=== PATIENT | female | born 1950 | race Caucasian/White ===

== ENCOUNTER → 2016-09-16 | Outpatient (CLI) | payer OTHER ==
[2016-09-16 17:44] LABS: BASO % 0.3 %; BASO ABS # 0.02 K/uL (0-0.2); COMPLETE YES; EOS % 1.5 %; HEMATOCRIT 41.8 % (37-47); IG% 0.3 %; LYMPH ABS # 2.38 K/uL (1.2-3.4); MEAN CELL VOLUME 92.5 fL (80-100); MEAN CORPUSCULAR HEMOGLOBIN 29.6 pg (25-34); MEAN CORPUSCULAR HGB CONC 32.1 g/dl (32-36); MONO % 9.3 %; NEUT % 56.6 %; PLATELET COUNT 256 K/uL (130-400); RED BLOOD COUNT 4.52 M/uL (4.2-5.4); WHITE BLOOD COUNT 7.44 K/uL (4.8-10.8)
[2016-09-16 18:13] LABS: CHOLESTEROL/HDL RATIO 3.2; THYROID STIMULATING HORMONE 1.38 uIu/ml (0.300-4.500)
--- NOTE | 2016-09-23 13:49 | CODING QUERY MEDICAL NECESSITY ---
CQSUPPORTING DIAGNOSIS NEEDED A supporting diagnosis is required for the test/procedure performed on this patient in order for us to be reimbursed by the patient's insurance. Please provide a supporting diagnosis for the following test/procedure listed below next to the test name along with your signature. *If there is no additional diagnosis for this patient that would support the following test/procedure please document that below next to the test/procedure. Test(s)/Procedure(s) that require a supporting diagnosis: DOS 09/16/16 BLOOD COUNT Provider Signature: Date: Thank you Jackie Person [employer] Once completed, please kindly fax back to [phone] For questions please call [phone]
== END | disposition home or self-care (01) ==
LOC: C.LABPBG 15:33 → MERGE 15:33
PROVIDERS: ATTEND Neuromusculoskeletal Medicine & OMM
DX: Z00.00 Encounter for general adult medical examination without abnormal findings (principal); R00.2 Palpitations

== ENCOUNTER → 2017-01-22 | Outpatient (CLI) | payer OTHER ==
[2017-01-22 16:55] LABS: BLOOD UREA NITROGEN 25 mg/dl (7-18); BUN/CREATININE RATIO 24.6 (10-20); CALCIUM 9.9 mg/dl (8.5-10.1); CARBON DIOXIDE 33 mmol/L (21-32); CHLORIDE 99 mmol/L (98-107); GLUCOSE,FASTING 120 mg/dl (70-99); POTASSIUM 4.3 mmol/L (3.5-5.1); SODIUM 138 mmol/L (136-145)
[2017-01-22 17:06] LABS: CHOLESTEROL 124 mg/dl (0-200); HDL CHOLESTEROL 42 mg/dl; LDL CHOLESTEROL CALCULATED 61 mg/dl; TRIGLYCERIDES 105 mg/dl (0-150); VERY LOW DENSITY LIPOPROT CALC 21 mg/dl
--- NOTE | 2017-01-27 11:31 | CODING QUERY MEDICAL NECESSITY ---
SUPPORTING DIAGNOSIS NEEDED Genaro ALBARADO, A supporting diagnosis is required for the test/procedure performed on this patient in order for us to be reimbursed by the patient's insurance. Please provide a supporting diagnosis for the following test/procedure listed below next to the test name along with your signature. *If there is no additional diagnosis for this patient that would support the following test/procedure please document that below next to the test/procedure. Test(s)/Procedure(s) that require a supporting diagnosis: * [id number] GLYCATED HEMOGLOBIN DIAGNOSIS: DATE OF SERVICE: 01/22/17 Provider Signature: Date: Thank you Gopi Herman [facility] Information Management Once completed, please kindly fax back to [phone] For questions please call [phone]
== END | disposition home or self-care (01) ==
LOC: C.LABPBG 11:37
PROVIDERS: ATTEND Physician Assistant
DX: Z00.00 Encounter for general adult medical examination without abnormal findings (principal); E03.9 Hypothyroidism, unspecified; Z13.1 Encounter for screening for diabetes mellitus

== ENCOUNTER → 2017-07-07 | Outpatient (CLI) | payer OTHER ==
[2017-07-07 12:36] LABS: BASO % 0.2 %; BASO ABS # 0.02 K/uL (0-0.2); EOS % 2.5 %; HEMATOCRIT 42.6 % (37-47); HEMOGLOBIN 13.8 g/dL (12.0-16.0); IG# 0.01 K/uL (0.00-0.02); LYMPH ABS # 1.79 K/uL (1.2-3.4); MEAN CELL VOLUME 90.6 fL (80-100); MEAN CORPUSCULAR HEMOGLOBIN 29.4 pg (25-34); MEAN CORPUSCULAR HGB CONC 32.4 g/dl (32-36); MEAN PLATELET VOLUME 11.1 fL (7.4-10.4); MONO ABS # 0.65 K/uL (0.11-0.59); NEUT % 67.2 %; NEUT ABS # 5.47 K/uL (1.4-6.5); PLATELET COUNT 241 K/uL (130-400); RED CELL DISTRIBUTION WIDTH CV 15.6 % (11.5-14.5); RED CELL DISTRIBUTION WIDTH SD 51.9 fL (36.4-46.3); WHITE BLOOD COUNT 8.14 K/uL (4.8-10.8)
[2017-07-07 13:23] LABS: BLOOD UREA NITROGEN 25 mg/dl (7-18); CALCIUM 9.7 mg/dl (8.5-10.1); CARBON DIOXIDE 30 mmol/L (21-32); CREATININE 1.04 mg/dl (0.60-1.20); GLUCOSE 105 mg/dl (70-99); SODIUM 134 mmol/L (136-145)
[2017-07-07 13:27] LABS: HEMOGLOBIN A1C 6.2 % (4.5-5.6)
[2017-07-07 13:34] LABS: CHOLESTEROL 144 mg/dl (0-200); LDL CHOLESTEROL CALCULATED 77 mg/dl
== END | disposition home or self-care (01) ==
LOC: C.LABPBG 10:15
PROVIDERS: ATTEND Family Medicine
DX: E03.9 Hypothyroidism, unspecified (principal); I10 Essential (primary) hypertension; R73.03 Prediabetes

== ENCOUNTER 2021-04-30 00:55 | Inpatient (IN) ==
--- NOTE | 2021-04-30 01:09 | Emergency Department Note ---
Impression & Plan Back pain Admission ED Provider Note HPI: Patient arrived to the ED via EMS ambulance The patient is a 70-year-old female with history of lymphedema, morbid obesity, diastolic heart failure, COPD, presents to the emergency department with a chief complaint of right lower back pain that radiates down her right leg that she experienced acutely today when she was getting up from a seated position. Patient states she was just discharged yesterday from [facility] after a stay for pneumonia and CHF. Patient tells me that she does have some difficulty ambulating in her home with her walker. She states this is become increasingly difficult for her, she can no longer go to the restroom on her own and frequently urinates on herself. She states that today she was getting up from a seated position and felt a "pop" in her lower back and had some pain radiating down her right leg and right knee. ROS: -MSK: Back pain with radiation down the right leg *10 point review systems was conducted and is otherwise negative unless stated above *Outpatient medications and allergy history reviewed PE: General: Alert, NAD, morbidly obese HEENT: Normocephalic, atraumatic, trachea midline Eyes: Extraocular eye movement is intact, no scleral erythema Pulmonary: Clear to auscultation bilaterally, no wheezing Cardio: Regular rate and rhythm GI: Abdomen is soft, nontender : No suprapubic tenderness MSK: No evidence of trauma, significant swelling/edema of the bilateral lower extremities with mild erythematous/dry skin changes below the knee bilaterally consistent with venous stasis and superimposed lymphedema Skin: No evidence of rash, lower extremities as above Neuro: Alert, no focal deficits, sensation and motor function is intact in the bilateral lower extremities Psychiatric: Cooperative vehicle monitor technician: - An order was placed for continuous cardiac monitoring - Patient was noted to be in sinus rhythm with rate of 80 CT L SPINE: No evidence of fracture or malalignment. Mildly limited exam due to patient body habitus. Radiologist: Randal Power MD EKG: Rate: 79 Rhythm: Sinus rhythm Intervals: Within normal limits ST changes: No ST elevation Time: 0340 Medical Decision Making: Patient presented with acute onset right lower back pain, stated she also had s ome pain in her right leg. Patient does have bilateral lower extremities with lymphedema and significant swelling, her fluid status is difficult to assess on physical examination secondary to her body habitus. She denies any current chest pain or shortness of breath. She does not have any red flag findings for cauda equina syndrome, she does not have any urinary or bowel incontinence or retention, she does not have any motor or sensory deficits distally in the lower extremities. Interventions included IV morphine for pain. Lab work shows leukocytosis greater than 15,000, blood cultures were ordered in the ED, patient tells me that she was recently treated for pneumonia at [facility], she was treated prophylactically with vancomycin and azithromycin, she has a severe penicillin allergy therefore was not given any cephalosporins. Troponin is negative x1. EKG does not show any ischemic changes. D-dimer is elevated although I think this is more likely reactive in nature given her recent illness, she denies any chest pain or shortness of breath currently, low suspicion for PE, additionally cannot obtain CT angiography at this time secondary to difficulty with peripheral access and the patient's body habitus in regards to positioning in the CT scanner. Ultrasound imaging of the bilateral lower extremities does not show any evidence of obvious DVT per discussion with atmospheric technician, official read is pending. Imaging shows questionable R sided PNA on chest x-ray, COVID-19 testing is negative. Patient is not really symptomatic from the standpoint however given her leukocytosis and recent inpatient admission for PNA at [facility], she was covered with antibiotics. CT imaging of the lumbar spine shows no evidence of fracture or malalignment, this is slightly limited due to the patient's body habitus. I suspect that she likely has a sciatica pattern of pain likely secondary to herniated disc or inflammatory pathology. On re-evaluation the patient remains hemodynamically stable, she was informed of the above findings. She states that she does not feel comfortable taking care of herself at home she is unable to ambulate, she is unable to go to the restroom, she cannot perform her activities of daily living. I think she would benefit from placement and therefore will arrange for admission in conjunction with her ongoing leukocytosis and possible pneumonia. Patient was in agreement to the above plan she was admitted to the hospitalist service for further care. Diagnosis: 1. Lower back pain, right lower extremity pain 2. Ambulatory dysfunction 3. Lymphedema 4. Leukocytosis 5. Community-acquired pneumonia Disposition: Admission Manpreet Peters DO Emergency Medicine Past Med/Surg History Medical History Allergic rhinitis Arthritis Asthma Chronic diastolic (congestive) heart failure COPD (chronic obstructive pulmonary disease) Endometrium, polyp Glaucoma Gout History of herpes zoster History of pneumonia Hypertension Hypothyroidism Lumbar facet arthropathy LVH (left ventricular hypertrophy) Lymphedema Morbid obesity Prediabetes Vitamin B 12 deficiency Surgical History History of ankle surgery History of cholecystectomy Hx of tubal ligation S/P tonsillectomy Status post hysteroscopic polypectomy Family History Mother Alcohol abuse Father Diabetes Hypertension Denies family history of Colon cancer Ovarian cancer Prostate cancer Myocardial infarction Breast cancer Social History Smoking Status: Current every day smoker Tobacco Type: Smokeless Tobacco (Dip or Chew) Age Started Using Tobacco: 27; Second Hand Exposure: No; Hx Alcohol Use: Yes Alcohol Intake Frequency: Monthly or Less Hx Substance Use: No Preferred Language: Monegasque Communication Ability: Effective Visual Impairment: Limited Hearing Ability: Normal Refractory Manager Required: No Beliefs That Will Affect Care: None marital status: / Current Living Situation: Alone current occupational status: retired How many Children do You have: 2 Feels Safe at Home: Yes Childhood Exposure to Second-Hand Smoke: Yes caffeine: No during the past year weight has: remained stable Dental Care, Regularly: Yes Physical Activity Frequency: Does not Exercise Seatbelt Use: always Sunscreen Use: No (patient does not go in the sun) Allergies Allergies Allergy/AdvReac Type Severity Reaction Status Date / Time penicillin V [From Pen-Vee K] Allergy Severe "Stopped Verified 04/30/21 01:55 breathing" albuterol Allergy Unknown Unknown Verified 04/30/21 01:55 codeine Allergy Unknown Unknown Verified 04/30/21 01:55 Sulfa (Sulfonamide Allergy Unknown Unknown Verified 04/30/21 01:55 Antibiotics) Hydrocodone-Acetaminophen Allergy Unknown Unknown Uncoded 04/30/21 01:55 CAPS Home Meds Home Medications Medication Instructions Recorded Confirmed acetaminophen 650 mg 1,300 mg PO BID 11/23/18 04/30/21 tablet,extended release latanoprost 0.005 % eye drops 1 drops OPB HS 11/23/18 04/30/21 multivitamin (Daily Multi-Vitamin) 1 tab PO QAM 11/23/18 04/30/21 acetaminophen 500 mg tablet 1,000 mg PO BID PRN 04/30/21 04/30/21 (Tylenol Extra Strength) aspirin 81 mg chewable tablet 81 mg PO DAILY 04/30/21 04/30/21 metolazone 5 mg tablet 5 mg PO DAILY 04/30/21 04/30/21 triamcinolone acetonide 0.1 % 1 applic TOPICAL BID 04/30/21 04/30/21 topical cream Previous Rx's Medication Instructions Recorded apple cider vinegar 500 mg tablet 500 mg PO BID #180 tab 10/04/20 allopurinol 300 mg tablet 300 mg PO DAILY #90 tab 12/06/20 furosemide 40 mg tablet 40 mg PO BID #180 tab 12/06/20 levothyroxine 25 mcg tablet 25 mcg PO DAILY #90 tab 12/06/20 magnesium oxide 400 mg (241.3 mg 400 mg PO QAM #90 tab 12/06/20 magnesium) tablet spironolactone 50 mg tablet 50 mg PO BID #180 tab 12/06/20 Results & Data (ED) Vital Signs Vital Signs - 24 hr 04/30/21 01:01 04/30/21 01:23 04/30/21 03:10 Temperature 37.8 C H Temperature Source Oral Pulse Rate 76 74 Pulse Rate [Apical] 78 74 Respiratory Rate 20 24 18 Respiratory Effort / Characteristics Non-Labored Spontaneous Respiratory Depth Normal Respiratory Pattern Regular Blood Pressure 154/91 H Blood Pressure [Right Arm] 154/91 H 121/68 Blood Pressure Mean 112 Blood Pressure Mean [Right Arm] 112 85 Blood Pressure Position Sitting Blood Pressure Position [Right Arm] Lying Pulse Oximetry 98 100 100 Oxygen Delivery Method Room Air Room Air Room Air Sepsis Recent Fever Within 48 Hours No Sepsis New/Unexplained Change in Mental Status No Sepsis Action Taken by Nursing No Action Required 04/30/21 04:30 Temperature Temperature Source Pulse Rate Pulse Rate [Apical] 76 Respiratory Rate 16 Respiratory Effort / Characteristics Respiratory Depth Respiratory Pattern Blood Pressure Blood Pressure [Right Arm] 130/86 Blood Pressure Mean Blood Pressure Mean [Right Arm] 100 Blood Pressure Position Blood Pressure Position [Right Arm] Sitting Pulse Oximetry 95 Oxygen Delivery Method Room Air Sepsis Recent Fever Within 48 Hours Sepsis New/Unexplained Change in Mental Status Sepsis Action Taken by Nursing Laboratory Data Result diagrams: 04/30/21 02:01 04/30/21 02:01 Lab Results 04/30/21 04/30/21 04/30/21 Range/Units 01:25 02:01 02:01 WBC 15.48 H (4.8-10.8) K/uL RBC 4.28 (4.2-5.4) M/uL Hgb 12.8 (12.0-16.0) g/dL Hct 38.6 (37-47) % MCV 90.2 (80-100) fL MCH 29.9 (25-34) pg MCHC 33.2 (32-36) g/dL RDW Std Deviation 48.6 H (36.4-46.3) fL RDW Coeff of Daron 14.8 H (11.5-14.5) % Plt Count 273 (130-400) K/uL MPV 11.2 H (7.4-10.4) fL Immature Gran % (Auto) 0.5 % Neut % (Auto) 76.2 % Lymph % (Auto) 14.5 % [place] % (Auto) 8.2 % Eos % (Auto) 0.5 % Baso % (Auto) 0.1 % Neut # (Auto) 11.80 H (1.4-6.5) K/uL Lymph # (Auto) 2.25 (1.2-3.4) K/uL [place] # (Auto) 1.27 H (0.11-0.59) K/uL Eos # (Auto) 0.08 (0-0.5) K/uL Baso # (Auto) 0.01 (0-0.2) K/uL Immature Gran # (Auto) 0.07 H (0.00-0.02) K/uL PT 10.3 (9.0-12.0) Seconds INR 1.0 (0.9-1.1) APTT 29.1 (21.0-31.0) Seconds PTT Ratio 1.1 D-Dimer 5380 H* (0-500) ug/L FEU Sodium (136-145) mmol/L Potassium (3.5-5.1) mmol/L Chloride (98-107) mmol/L Carbon Dioxide (21-32) mmol/L Anion Gap (3-11) BUN (7-18) mg/dl Creatinine (0.6-1.2) mg/dl Est Cr Clr Drug Dosing ml/min Est GFR ( Amer) ml/min Est GFR (Non-Af Amer) ml/min BUN/Creatinine Ratio (10-20) Glucose (70-99) mg/dl Calcium (8.5-10.1) mg/dl Total Bilirubin (0.2-1) mg/dl AST (15-37) U/L ALT (12-78) Alkaline Phosphatase (45-117) U/L Troponin I (0-0.045) ng/ml Total Protein (6.4-8.2) gm/dl Albumin (3.4-5.0) gm/dl Globulin (2.5-4.0) gm/dl Albumin/Globulin Ratio (0.9-2) Lipase (73-393) U/L SARS-CoV-2, RNA, NAAT NEGATIVE (NEGATIVE) 04/30/21 Range/Units 02:01 WBC (4.8-10.8) K/uL RBC (4.2-5.4) M/uL Hgb (12.0-16.0) g/dL Hct (37-47) % MCV (80-100) fL MCH (25-34) pg MCHC (32-36) g/dL RDW Std Deviation (36.4-46.3) fL RDW Coeff of Daron (11.5-14.5) % Plt Count (130-400) K/uL MPV (7.4-10.4) fL Immature Gran % (Auto) % Neut % (Auto) % Lymph % (Auto) % [place] % (Auto) % Eos % (Auto) % Baso % (Auto) % Neut # (Auto) (1.4-6.5) K/uL Lymph # (Auto) (1.2-3.4) K/uL [place] # (Auto) (0.11-0.59) K/uL Eos # (Auto) (0-0.5) K/uL Baso # (Auto) (0-0.2) K/uL Immature Gran # (Auto) (0.00-0.02) K/uL PT (9.0-12.0) Seconds INR (0.9-1.1) APTT (21.0-31.0) Seconds PTT Ratio D-Dimer (0-500) ug/L FEU Sodium 131 L (136-145) mmol/L Potassium 3.6 (3.5-5.1) mmol/L Chloride 91 L (98-107) mmol/L Carbon Dioxide 31 (21-32) mmol/L Anion Gap 9.0 (3-11) BUN 45 H (7-18) mg/dl Creatinine 1.57 H (0.6-1.2) mg/dl Est Cr Clr Drug Dosing 53.6 ml/min Est GFR ( Amer) 38.9 ml/min Est GFR (Non-Af Amer) 33.5 ml/min BUN/Creatinine Ratio 28.9 H (10-20) Glucose 137 H (70-99) mg/dl Calcium 10.1 (8.5-10.1) mg/dl Total Bilirubin 0.8 (0.2-1) mg/dl AST 23 (15-37) U/L ALT 27 (12-78) Alkaline Phosphatase 85 (45-117) U/L Troponin I < 0.015 (0-0.045) ng/ml Total Protein 8.6 H (6.4-8.2) gm/dl Albumin 3.1 L (3.4-5.0) gm/dl Globulin 5.5 H (2.5-4.0) gm/dl Albumin/Globulin Ratio 0.6 L (0.9-2) Lipase 117 (73-393) U/L SARS-CoV-2, RNA, NAAT (NEGATIVE) Administered Medications Vancomycin HCl 2,750 mg/ (Sodium Chloride) 555 mls @ 200 mls/hr IV NOW ONE Stop: 04/30/21 06:08 Last Admin: 04/30/21 03:56 Dose: 200 mls/hr Documented by: [id number] Discontinued Medications Azithromycin 500 mg/ Dextrose 255 mls @ 127.5 mls/hr IV NOW STA Stop: 04/30/21 05:19 Last Admin: 04/30/21 03:56 Dose: 127.5 mls/hr Documented by: [id number] Morphine Sulfate (Morphine Sulfate 10 Mg/Ml Carp/Vial) 6 mg IV NOW STA Stop: 04/30/21 01:32 Last Admin: 04/30/21 01:43 Dose: 6 mg Documented by: [id number] Morphine Sulfate (Morphine Sulfate 4 Mg/Ml 1 Ml Carp\\Vial) 4 mg IV NOW STA Stop: 04/30/21 03:01 Last Admin: 04/30/21 03:35 Dose: 4 mg Documented by: [id number] Discharge Plan Visit Data Chief Complaint: Back Injury/Pain Stated Complaint: R LEG/BACK INJURY ED Provider: Manpreet Peters Discharge Problem: Back pain Forms Stand Alone Forms: [facility] [email or web address] Prescriptions Prescriptions: No Action allopurinol 300 mg tablet 300 mg PO DAILY Qty: 90 RF: 1 furosemide 40 mg tablet 40 mg PO BID Qty: 180 RF: 1 levothyroxine 25 mcg tablet 25 mcg PO DAILY Qty: 90 RF: 1 magnesium oxide 400 mg (241.3 mg magnesium) tablet 400 mg PO QAM Qty: 90 RF: 1 spironolactone 50 mg tablet 50 mg PO BID Qty: 180 RF: 1 apple cider vinegar 500 mg tablet 500 mg PO BID Qty: 180 RF: 1 multivitamin [Daily Multi-Vitamin] tablet 1 tab PO QAM RF: 0 latanoprost 0.005 % drops 1 drops OPB HS RF: 0 acetaminophen 650 mg tablet extended release 1,300 mg PO BID RF: 0 metolazone 5 mg tablet 5 mg PO DAILY RF: 0 acetaminophen [Tylenol Extra Strength] 500 mg Tablet 1,000 mg PO BID PRN (Reason: Pain) RF: 0 triamcinolone acetonide 0.1 % cream 1 applic TOPICAL BID RF: 0 aspirin 81 mg Tablet,Chewable 81 mg PO DAILY RF: 0 Referrals Referrals: Vickie Hodge DO [Primary Care Provider] - Discharge Problem: Back pain Qualifiers: Back pain location: low back pain Chronicity: acute Back pain laterality: right Sciatica presence: with sciatica Sciatica laterality: sciatica of right side Qualified Code(s): M54.41 - Lumbago with sciatica, right side
[2021-04-30] MEDS ORDERED: MoRPHine SULFATE 10 MG/ML CARP/VIAL IV STA (01:31)
[2021-04-30 02:11] LABS: Basophils # (auto) 0.01 K/uL (0-0.2); Basophils % (auto) 0.1 %; Eosinophils # (auto) 0.08 K/uL (0-0.5); Eosinophils % (auto) 0.5 %; Hematocrit (blood only) 38.6 % (37-47); Hemoglobin 12.8 g/dL (12.0-16.0); Immature Granulocytes # (auto) 0.07 K/uL (0.00-0.02); Immature Granulocytes % (auto) 0.5 %; Lymphocytes # (auto) 2.25 K/uL (1.2-3.4); Lymphocytes % (auto) 14.5 %; Mean Corpuscular Hemoglobin 29.9 pg (25-34); Mean Corpuscular Hgb Conc 33.2 g/dL (32-36); Mean Corpuscular Volume 90.2 fL (80-100); Mean Platelet Volume 11.2 fL (7.4-10.4); Monocytes # (auto) 1.27 K/uL (0.11-0.59); Monocytes % (auto) 8.2 %; Neutrophils % (auto) 76.2 %; Platelet Count 273 K/uL (130-400); RDW Coefficient of Variation 14.8 % (11.5-14.5); RDW Standard Deviation 48.6 fL (36.4-46.3); Red Blood Count 4.28 M/uL (4.2-5.4); White Blood Count 15.48 K/uL (4.8-10.8)
[2021-04-30 02:30] LABS: Alanine Aminotransferase 27 (12-78); Albumin Level 3.1 gm/dl (3.4-5.0); Aspartate Aminotransferase 23 U/L (15-37); BUN Creatinine Ratio 28.9 (10-20); Blood Urea Nitrogen 45 mg/dl (7-18); Calcium 10.1 mg/dl (8.5-10.1); Carbon Dioxide 31 mmol/L (21-32); Chloride 91 mmol/L (98-107); Creatinine Clr Calc Pharmacy 53.6 ml/min; Est GFR (African American) 38.9 ml/min; Est GFR (Non-African American) 33.5 ml/min; Glucose 137 mg/dl (70-99); Lipase 117 U/L (73-393); Potassium 3.6 mmol/L (3.5-5.1); Sodium 131 mmol/L (136-145)
[2021-04-30 02:31] LABS: Partial Thromboplastin Ratio 1.1; Partial Thromboplastin Time 29.1 Seconds (21.0-31.0); Prothrombin Time 10.3 Seconds (9.0-12.0)
[2021-04-30 02:35] LABS: Albumin Globulin Ratio 0.6 (0.9-2); Alkaline Phosphatase 85 U/L (45-117); Bilirubin,Total 0.8 mg/dl (0.2-1); Globulin 5.5 gm/dl (2.5-4.0); Total Protein 8.6 gm/dl (6.4-8.2); Troponin I < 0.015 ng/ml (0-0.045)
[2021-04-30 02:39] LABS: D Dimer 5380 ug/L FEU (0-500)
[2021-04-30] MEDS ORDERED: MoRPHine SULFATE 4 MG/ML 1 ML CARP\\VIAL IV STA (03:00)
[2021-04-30] MEDS ORDERED: VANCOMYCIN HCL 2,750 MG in SODIUM CHLORIDE 0.9% 500 ML IV ONE (03:19)
[2021-04-30] MEDS ORDERED: VANCOMYCIN CONSULT ACTIVE PRN (03:19)
[2021-04-30] MEDS ORDERED: AZITHROMYCIN 500 MG in DEXTROSE 5% 250 ML IV STA (03:20)
[2021-04-30 05:44] LABS: Appearance Urine Clear (Clear); Bacteria Urine Automated 4+ (Negative); Bilirubin Urine Negative (Negative); Blood Urine Negative (Negative); Color Urine Yellow; Epithelial Cell Urine Auto 20-30 /lpf (0-5); Glucose Urine UA Negative (Negative); Ketones Urine Negative (Negative); Leukocyte Esterase Urine 1+ (Negative); Nitrite Urine Positive (Negative); Protein Urine Negative (Negative); RBC Urine Automated 0-4 /hpf (0-4); Specific Gravity Urine 1.015 (1.000-1.030); Urobilinogen Urine Negative (Negative)
--- NOTE | 2021-04-30 06:17 | History & Physical Report ---
Date of Service April 30, 2021 Assessment & Plan (1) Cellulitis of both lower extremities: Plan: Cellulitis of bilateral lower extremities/chronic lymphedema- Placed on daptomycin IV and aztreonam IV Follow clinical examination (2) Back pain: Plan: Back pain/history of lumbar facet arthropathy- CT scan lumbar spine negative Body habitus prevents MRI Suspect may be due to relative inactivity with recent hospitalization at [facility] Consult PT/OT, will likely need inpatient rehab stay after above issues treated (3) Chronic diastolic (congestive) heart failure: Plan: Chronic diastolic CHF/hypertension/JAZZY- Continue aspirin 81 mg daily, furosemide 40 mg p.o. twice daily and mag oxide 40 mg every morning Hold metolazone 5 mg p.o. daily Decrease prolactin from 50 mg p.o. twice daily to 25 mg p.o. twice daily Follow serial BMP, holding on IV fluids at this time (4) COPD (chronic obstructive pulmonary disease): Plan: Reported history of COPD, but not on any inhalers Pulse ox 100% on room air Do not think there is any infectious component, canceling vancomycin IV and azithromycin IV ordered from the ED (5) Hypertension: Plan: See above (6) Acute kidney injury: Plan: Creatinine 1.57 upon admission, with range 1.09-1.24 Medication adjustments as noted above (7) Lumbar facet arthropathy: Plan: See above (8) Hypothyroidism: Plan: Continue levothyroxine 25 mcg daily (9) Morbid obesity: Plan: Strong contributor to symptoms and decreased ability to ambulate She does use a walker at home (10) Gout: Plan: Continue allopurinol 300 mg daily Likely being aggravated by metolazone History of Present Illness Chief Complaint: The patient presents to the emergency department with complaint of low back pain, and bilateral extremity pain that she noted earlier in the day today Primary Care Provider: Vickie Hodge DO The patient is a 70-year-old female with past medical history including lym phedema, lumbar facet arthropathy, asthma, chronic diastolic heart failure, COPD, gout, hypertension, hypothyroidism, LVH, morbid obesity and prediabetes. She was most recently admitted to [facility] for which she reports was a stay for pneumonia and CHF. However, upon questioning, she reports that she did not feel any difference in her breathing post admission compared to preadmission. She is chronically had issues with ambulation, and uses a walker at home. She reports that she is not able to get to the bathroom, and periodically urinates on herself. She reports that when she was going from sitting to standing or in the day today she felt a pop in her lower back and developed a more acute pain in her right leg. She does report discomfort and pain with bilateral lower extremities, and when asked about apparent redness, she notes that she has had that for a little while. Allergies Allergy/AdvReac Type Severity Reaction Status Date / Time penicillin V [From Pen-Vee K] Allergy Severe "Stopped Verified 04/30/21 01:55 breathing" albuterol Allergy Unknown Unknown Verified 04/30/21 01:55 codeine Allergy Unknown Unknown Verified 04/30/21 01:55 Sulfa (Sulfonamide Allergy Unknown Unknown Verified 04/30/21 01:55 Antibiotics) Hydrocodone-Acetaminophen Allergy Unknown Unknown Uncoded 04/30/21 01:55 CAPS Home Medications Medication Instructions Recorded Confirmed Type acetaminophen 650 mg 1,300 mg PO BID 11/23/18 04/30/21 History tablet,extended release latanoprost 0.005 % eye drops 1 drops OPB HS 11/23/18 04/30/21 History multivitamin (Daily Multi-Vitamin) 1 tab PO QAM 11/23/18 04/30/21 History apple cider vinegar 500 mg tablet 500 mg PO BID #180 tab 10/04/20 04/30/21 Rx allopurinol 300 mg tablet 300 mg PO DAILY #90 tab 12/06/20 04/30/21 Rx furosemide 40 mg tablet 40 mg PO BID #180 tab 12/06/20 04/30/21 Rx levothyroxine 25 mcg tablet 25 mcg PO DAILY #90 tab 12/06/20 04/30/21 Rx magnesium oxide 400 mg (241.3 mg 400 mg PO QAM #90 tab 12/06/20 04/30/21 Rx magnesium) tablet spironolactone 50 mg tablet 50 mg PO BID #180 tab 12/06/20 04/30/21 Rx acetaminophen 500 mg tablet 1,000 mg PO BID PRN 04/30/21 04/30/21 History (Tylenol Extra Strength) aspirin 81 mg chewable tablet 81 mg PO DAILY 04/30/21 04/30/21 History metolazone 5 mg tablet 5 mg PO DAILY 04/30/21 04/30/21 History triamcinolone acetonide 0.1 % 1 applic TOPICAL BID 04/30/21 04/30/21 History topical cream Past Med/Surg History Medical History Allergic rhinitis Arthritis Asthma Chronic diastolic (congestive) heart failure COPD (chronic obstructive pulmonary disease) Endometrium, polyp Glaucoma Gout History of herpes zoster History of pneumonia Hypertension Hypothyroidism Lumbar facet arthropathy LVH (left ventricular hypertrophy) Lymphedema Morbid obesity Prediabetes Vitamin B 12 deficiency Surgical History History of ankle surgery History of cholecystectomy Hx of tubal ligation S/P tonsillectomy Status post hysteroscopic polypectomy Family History Mother Alcohol abuse Father Diabetes Hypertension Denies family history of Colon cancer Ovarian cancer Prostate cancer Myocardial infarction Breast cancer Social History Smoking Status: Current every day smoker Tobacco Type: Smokeless Tobacco (Dip or Chew) Age Started Using Tobacco: 27; Second Hand Exposure: No; Hx Alcohol Use: Yes Alcohol Intake Frequency: Monthly or Less Hx Substance Use: No Preferred Language: Japanese Communication Ability: Effective Visual Impairment: Limited Hearing Ability: Normal Floor Associate Required: No Beliefs That Will Affect Care: None marital status: / Current Living Situation: Alone current occupational status: retired How many Children do You have: 2 Feels Safe at Home: Yes Childhood Exposure to Second-Hand Smoke: Yes caffeine: No during the past year weight has: remained stable Dental Care, Regularly: Yes Physical Activity Frequency: Does not Exercise Seatbelt Use: always Sunscreen Use: No (patient does not go in the sun) Review of Systems Review of Systems: The patient denies chest pain, palpitations, cough, sore throat, fevers, chills, sweats, nausea, vomiting, diarrhea , constipation, abdominal pain, pelvic pain, blood in urine or stool, dysuria, urinary frequency or urgency, lightheadedness, dizziness, headache, memory loss, loss of consciousness, abnormal bruising or bleeding, focal or generalized weakness, numbness or tingling in arms, neck pain, or night sweats. The review of systems is otherwise negative other than for that already noted above, and at least 10 systems have been reviewed. Physical Exam 2 Physical Exam: The patient is awake, alert and oriented 3, normocephalic and atraumatic, lying in bed and in no acute distress. HEENT--PERRL, EOMI, mucous membranes and oropharynx normal. Neck--supple. No JVD. No bruits. Thyroid normal, trachea midline, no adenopathy. Heart--normal S1 and S2. No murmurs, rubs or gallops. Lungs--decreased breath sounds throughout. No respiratory distress, no accessory muscle use. Abdomen--normal bowel sounds and soft. Nontender. Morbidly obese Extremities/dermatologic--moderately severe erythema and warmth, left greater than right, from ankles up through to groin Neurologic--cranial nerves II through XII grossly intact. Rheumatologic--severely limited exam due to body habitus Psychiatric--normal affect. Results & Data Results & Data ([facility]) Vital Signs (Past 12 Hours) Vital Signs Temp Pulse Pulse Resp BP BP Pulse Ox 04/30/21 04:30 76 16 130/86 95 04/30/21 03:10 74 74 18 121/68 100 04/30/21 01:23 78 24 154/91 H 100 04/30/21 01:01 37.8 C H 76 20 154/91 H 98 Laboratory Results Laboratory Results WBC 15.48 K/uL (4.8-10.8) H 04/30/21 02:01 RBC 4.28 M/uL (4.2-5.4) 04/30/21 02:01 Hgb 12.8 g/dL (12.0-16.0) 04/30/21 02:01 Hct 38.6 % (37-47) 04/30/21 02:01 MCV 90.2 fL (80-100) 04/30/21 02:01 MCH 29.9 pg (25-34) 04/30/21 02:01 MCHC 33.2 g/dL (32-36) 04/30/21 02:01 RDW Std Deviation 48.6 fL (36.4-46.3) H 04/30/21 02:01 RDW Coeff of Daron 14.8 % (11.5-14.5) H 04/30/21 02:01 Plt Count 273 K/uL (130-400) 04/30/21 02:01 MPV 11.2 fL (7.4-10.4) H 04/30/21 02:01 Immature Gran % (Auto) 0.5 % 04/30/21 02:01 Neut % (Auto) 76.2 % 04/30/21 02:01 Lymph % (Auto) 14.5 % 04/30/21 02:01 [place] % (Auto) 8.2 % 04/30/21 02:01 Eos % (Auto) 0.5 % 04/30/21 02:01 Baso % (Auto) 0.1 % 04/30/21 02:01 Neut # (Auto) 11.80 K/uL (1.4-6.5) H 04/30/21 02:01 Lymph # (Auto) 2.25 K/uL (1.2-3.4) 04/30/21 02:01 [place] # (Auto) 1.27 K/uL (0.11-0.59) H 04/30/21 02:01 Eos # (Auto) 0.08 K/uL (0-0.5) 04/30/21 02:01 Baso # (Auto) 0.01 K/uL (0-0.2) 04/30/21 02:01 Immature Gran # (Auto) 0.07 K/uL (0.00-0.02) H 04/30/21 02:01 PT 10.3 Seconds (9.0-12.0) 04/30/21 02:01 INR 1.0 (0.9-1.1) 04/30/21 02:01 APTT 29.1 Seconds (21.0-31.0) 04/30/21 02:01 PTT Ratio 1.1 04/30/21 02:01 D-Dimer 5380 ug/L FEU (0-500) H* 04/30/21 02:01 Sodium 131 mmol/L (136-145) L 04/30/21 02:01 Potassium 3.6 mmol/L (3.5-5.1) 04/30/21 02:01 Chloride 91 mmol/L (98-107) L 04/30/21 02:01 Carbon Dioxide 31 mmol/L (21-32) 04/30/21 02:01 Anion Gap 9.0 (3-11) 04/30/21 02:01 BUN 45 mg/dl (7-18) H 04/30/21 02:01 Creatinine 1.57 mg/dl (0.6-1.2) H 04/30/21 02:01 Est Cr Clr Drug Dosing 53.6 ml/min 04/30/21 02:01 Est GFR ( Amer) 38.9 ml/min 04/30/21 02:01 Est GFR (Non-Af Amer) 33.5 ml/min 04/30/21 02:01 BUN/Creatinine Ratio 28.9 (10-20) H 04/30/21 02:01 Glucose 137 mg/dl (70-99) H 04/30/21 02:01 Calcium 10.1 mg/dl (8.5-10.1) 04/30/21 02:01 Total Bilirubin 0.8 mg/dl (0.2-1) 04/30/21 02:01 AST 23 U/L (15-37) 04/30/21 02:01 ALT 27 (12-78) 04/30/21 02:01 Alkaline Phosphatase 85 U/L (45-117) 04/30/21 02:01 Troponin I < 0.015 ng/ml (0-0.045) 04/30/21 02:01 Total Protein 8.6 gm/dl (6.4-8.2) H 04/30/21 02:01 Albumin 3.1 gm/dl (3.4-5.0) L 04/30/21 02:01 Globulin 5.5 gm/dl (2.5-4.0) H 04/30/21 02:01 Albumin/Globulin Ratio 0.6 (0.9-2) L 04/30/21 02:01 Lipase 117 U/L (73-393) 04/30/21 02:01 Urine Color Yellow 04/30/21 05:10 Urine Appearance Clear (Clear) 04/30/21 05:10 Urine pH 7.0 (4.5-7.5) 04/30/21 05:10 Ur Specific [place] 1.015 (1.000-1.030) 04/30/21 05:10 Urine Protein Negative (Negative) 04/30/21 05:10 Urine Glucose (UA) Negative (Negative) 04/30/21 05:10 Urine Ketones Negative (Negative) 04/30/21 05:10 Urine Blood Negative (Negative) 04/30/21 05:10 Urine Nitrite Positive (Negative) A 04/30/21 05:10 Urine Bilirubin Negative (Negative) 04/30/21 05:10 Urine Urobilinogen Negative (Negative) 04/30/21 05:10 Ur Leukocyte Esterase 1+ (Negative) H 04/30/21 05:10 Urine WBC (Auto) 10-30 /hpf (0-5) H 04/30/21 05:10 Urine RBC (Auto) 0-4 /hpf (0-4) 04/30/21 05:10 U Hyaline Cast (Auto) 1-5 /lpf (0-5) 04/30/21 05:10 U Epithel Cells (Auto) 20-30 /lpf (0-5) H 04/30/21 05:10 Urine Bacteria (Auto) 4+ (Negative) H 04/30/21 05:10 SARS-CoV-2, RNA, NAAT NEGATIVE (NEGATIVE) 04/30/21 01:25 Diagnostic Findings [facility] Patient: MELLY CANCHOLA (Female) : 54 Status: ER Date: 04/30/21 03:00 Room #: History: PT. FELL GOING TO THE BATHROOM, HAVING LOWER BACK PAIN NOW BEST IMAGES POSSIBLE DUE TO PT. BODY HABITUS, BARELY FIT THROUGH SCANNER Slices: [phone] Priors: Tech: Elizabeth Marin @ [phone] Exams: CT L SPINE Contrast: Accession Numbers: [id number] Referring Physician: REFERRED SELF Preliminary Findings Only See Final Report For Complete Findings CT L SPINE: No evidence of fracture or malalignment. Mildly limited exam due to patient body habitus. Radiologist: Randla Power MD Study ready at 03:05 and initial results transmitted at 03:19 *This report constitutes a preliminary interpretation only. Non-acute findings felt to be unrelated to the clinical presentation may not be discussed in this report. The study will be interpreted and a final report will be generated by the local Radiologist the following shift. To reach the [facility] radiology department call [phone]. If a discrepancy is found between the preliminary and final interpretations of this study, please notify us via our Client Portal at [email or web address], under [email or web address]. You can also fax this report with a description of the discrepancy, or include the final report, to our daytime fax number [phone]. If faxing, please indicate the severity of discrepancy using one of the following categories: [ ] 1 - Agree/Informational [ ] 2 - Unlikely to Affect Management [ ] 3 - Possible Eventual Change of Management [ ] 4 - Probable Immediate Change of Management For all other patient related information, please fax us at [phone]. [id number] [facility] Patient: MELLY CANCHOLA (Female) : 54 Status: ER Date: 04/30/21 05:15 Room #: History: leg pain Slices: 49 Priors: Tech: Anjana Herrera @ [phone] Exams: US VENOUS BILATERAL LOWER EXTREMITIES Contrast: Accession Numbers: [id number] Referring Physician: REFERRED SELF Preliminary Findings Only See Final Report For Complete Findings US VENOUS BILATERAL LOWER EXTREMITIES: No evidence of deep venous thrombosis. Radiologist: Randal Power MD Study ready at 05:17 and initial results transmitted at 05:19 *This report constitutes a preliminary interpretation only. Non-acute findings felt to be unrelated to the clinical presentation may not be discussed in this report. The study will be interpreted and a final report will be generated by the local Radiologist the following shift. To reach the [facility] radiology department call [phone]. If a discrepancy is found between the preliminary and final interpretations of this study, please notify us via our Client Portal at [email or web address], [email or web address]. You can also fax this report with a description of the discrepancy, or include the final report, to our daytime fax number [phone]. If faxing, please indicate the severity of discrepancy using one of the following categories: [ ] 1 - Agree/Informational [ ] 2 - Unlikely to Affect Management [ ] 3 - Possible Eventual Change of Management [ ] 4 - Probable Immediate Change of Management For all other patient related information, please fax us at [phone]. [id number] Code Status & VTE Plan Code Status Full code VTE Prophylaxis Plan VTE Prophylaxis will be ordered: Yes PG Care Time/CCT Total # of Minutes Spent Total Time Spent with Patient: Total time spent is greater than 50% in coordination of care (as documented) at patient's floor/unit and/or counseling patient: Coding Level of Care Code 90852 Initial Inpt Care Lvl 3 Diagnoses Cellulitis of both lower extremities L03.115; L03.116 Back pain M54.41 Back pain laterality: right Back pain location: low back pain Chronicity: acute Sciatica laterality: sciatica of right side Sciatica presence: with sciatica Chronic diastolic (congestive) heart failure I50.32 COPD (chronic obstructive pulmonary disease) J44.9 Hypothyroidism E03.9 Hypertension I10 Morbid obesity E66.01 Lumbar facet arthropathy M47.816 Acute kidney injury N17.9 Gout M10.9 (1) Back pain Back pain laterality: right Back pain location: low back pain Chronicity: acute Sciatica laterality: sciatica of right side Sciatica presence: with sciatica Qualified Code(s): M54.41 - Lumbago with sciatica, right side
--- NOTE | 2021-04-30 07:09 | CT Scan Report ---
CT lumbar spine wo con CLINICAL HISTORY: acute back pain after injury tonight TECHNIQUE: Multidetector row helical CT of the lumbar spine was performed without administration of i ntravenous contrast. Coronal and sagittal reformations were obtained. Automated dose lowering techniq ues and/or adjustment according to patient size were utilized for this exam. Comparison: None available at the time of this dictation. FINDINGS: Exam is limited by patient body habitus. No acute fractures are identified. Degenerative changes are noted in the visualized spine. Vertebral body alignment is within normal limits. Surrounding soft tissues are unremarkable. IMPRESSION: No evidence of acute fracture or traumatic subluxation. ACT 112: Negative or not required by law. Electronically signed by: Rodrigo Bearden M.D. 04/30/2021 7:08 AM
--- NOTE | 2021-04-30 07:10 | Ultrasound Report ---
BILATERAL LOWER EXTREMITY VENOUS DOPPLER HISTORY: Leg swelling. COMPARISON STUDY: None. FINDINGS: There is normal compressibility, flow, and augmentation within the bilateral lower extremit y deep venous systems. A 3.7 x 2.2 x 1.8 cm left popliteal cyst. IMPRESSION: No DVT within the right or left lower extremity. ACT 112: Negative or not required by law. Electronically signed by: Warner Dimas M.D. 04/30/2021 7:08 AM
[2021-04-30] MEDS ORDERED: ONDANSETRON INJ 2 MG/ML 2 ML VIAL IV PRN (07:37)
--- NOTE | 2021-04-30 08:15 | XRay Report ---
XR chest 1V portable CLINICAL HISTORY: Atypical chest pain TECHNIQUE: Single frontal radiograph of the chest was obtained. Comparison: Comparison is made to chest one view 05/06/2020 FINDINGS: No lines and tubes are seen. Cardiomegaly is noted. The lungs are clear. No evidence of pleural effus ion or pneumothorax. IMPRESSION: No acute chest disease. ACT 112: Negative or not required by law. Electronically signed by: Rodirgo Bearden M.D. 04/30/2021 8:14 AM
--- NOTE | 2021-04-30 08:19 | XRay Report ---
XR knee RT 1 or 2V routine CLINICAL HISTORY: R knee pain TECHNIQUE: 2 views of the right knee were obtained. Comparison: None available at the time of this dictation. FINDINGS: Exam is limited by patient body habitus. There is no evidence of an acute fracture. The alignment is anatomic. Degenerative changes are seen in the knee joint. No joint effusion is seen. No soft tissue abnormality is seen. IMPRESSION: No evidence of acute osseous injury. ACT 112: Negative or not required by law. Electronically signed by: Rodrigo Bearden M.D. 04/30/2021 8:18 AM
[2021-04-30] MEDS: allopurinoL 300 MG TAB PO SCH (09:13)
[2021-04-30] MEDS: AZTREONAM 2,000 MG in DEXTROSE 5% 100 ML IV SCH ×2 (09:13→18:16)
[2021-04-30] MEDS: ENOXAPARIN 80 MG/0.8 ML SYR SQ SCH (09:14)
[2021-04-30] MEDS: FUROSEMIDE 40 MG TAB PO SCH (09:14)
[2021-04-30] MEDS: ASPIRIN 81 MG ECTAB PO SCH (09:14)
[2021-04-30] MEDS: MAGNESIUM OXIDE 400 MG TAB PO SCH (09:15)
[2021-04-30] MEDS: MULTIVITAMIN TAB PO SCH (09:15)
[2021-04-30] MEDS: LEVOTHYROXINE SODIUM 25 MCG TABLET PO SCH (09:15)
[2021-04-30] MEDS: SPIRONOLACTONE 25 MG TAB PO SCH (09:16)
[2021-04-30] MEDS: TRIAMCINOLONE ACET 0.1% CR 15 GM TUBE TOP SCH ×2 (09:16→19:43)
[2021-04-30] MEDS: DAPTOmycin 600 MG in SYRINGE 0 ML IV SCH (10:06)
[2021-04-30] MEDS ORDERED: KETOROLAC TROMETHAMINE 15 MG/ML VIAL IV ONE (12:50)
--- NOTE | 2021-04-30 12:52 | Electrocardiogram Report ---
Test Reason : Blood Pressure : / mmHG Vent. Rate : 079 BPM Atrial Rate : 079 BPM P-R Int : 164 ms QRS Dur : 078 ms QT Int : 370 ms P-R-T Axes : 119 -17 049 degrees QTc Int : 424 ms Poor data quality, interpretation may be adversely affected Sinus rhythm with Premature atrial complexes Moderate voltage criteria for LVH, may be normal variant Borderline ECG When compared with ECG of 30-APR-2021 01:15, (unconfirmed) Significant changes have occurred Confirmed by Daron Wright ([id number]) on 04/30/2021 12:52:22 PM Referred By: REFERRED SELF Confirmed By:Daron Wright
--- NOTE | 2021-04-30 12:52 | Electrocardiogram Report ---
Test Reason : Blood Pressure : / mmHG Vent. Rate : 119 BPM Atrial Rate : 119 BPM P-R Int : 138 ms QRS Dur : 100 ms QT Int : 378 ms P-R-T Axes : 000 -06 008 degrees QTc Int : 531 ms Poor data quality, interpretation may be adversely affected Sinus tachycardia with Premature supraventricular complexes and with frequent , and consecutive [place] ture ventricular complexes Abnormal ECG When compared with ECG of 06-MAY-2020 12:16, Significant changes have occurred Confirmed by Daron Wright ([id number]) on 04/30/2021 12:51:50 PM Referred By: REFERRED SELF Confirmed By:Daron Wright
[2021-04-30] MEDS ORDERED: SODIUM CHLORIDE 0.9% 500 ML IV SCH (13:00)
--- NOTE | 2021-04-30 14:01 | XRay Report ---
XR calcaneus LT min 2V CLINICAL HISTORY: L heel pain; eval for fracture COMPARISON STUDY: None. FINDINGS: No fracture or dislocation within the left calcaneus. There are small plantar and posterior calcaneal spurs. Soft tissues are unremarkable. No radiopaque foreign bodies. No erosive changes. IMPRESSION: No fractures within the left calcaneus. ACT 112: Negative or not required by law. Electronically signed by: Warner Dimas M.D. 04/30/2021 2:00 PM
--- NOTE | 2021-04-30 15:50 | XCELERA ---
[id number] \\[id number]
--- NOTE | 2021-04-30 19:59 | Hospitalist Progress Note ---
Date of Service April 30, 2021 Assessment & Plan (1) Cellulitis of both lower extremities: Plan: In the setting of chronic lymphedema. Cont daptomycin IV and aztreonam IV. serial exams. follow blood cx's. (2) Back pain: Plan: I suspect she has significant spinal stenosis / DJD of lumbar spine with resulting radicular pain of the RLE. I am also concerned about her left hip flexion weakness which could be due to lumbar spine issues. CT lumbar spine shows DJD as expected. Ideally an MRI of l-spine would be best - will attempt to get it if the MRI machine can accomodate her. (3) Chronic diastolic (congestive) heart failure: Plan: Despite her LE edema she otherwise looks volume contracted - c/o thirst, creatinine high at 1.5 (baseline 1.1), dry MM, 100% sats in room air. I cannot exclude element of chronic right-sided CHF. Will obtain echo to look at her LV and RV function. Would hold her diuretics today. Re-eval tomorrow. (4) COPD (chronic obstructive pulmonary disease): Plan: Lung exam normal. no wheezes. sats wnl. (5) Hypertension: Plan: hold diuretics as above (6) Acute kidney injury: Plan: hold diuretics give 500cc of IV fluid repeat BMP am (7) Lumbar facet arthropathy: Plan: see #2 above for pain - dilaudid 0.25mg prn toradol 15mg IV x 1 now consider neuropathic agent (gabapentin, etc) (8) Hypothyroidism: Plan: Continue levothyroxine 25 mcg daily TSH 07/2020 wnl Given her increasing edema recheck TSH in am (9) Morbid obesity: Plan: BMI nearly 60 (10) Gout: Plan: Continue allopurinol 300 mg daily for prophylaxis (11) Pain of left heel: Plan: start with x-rays, r/o fracture. voltaren gel 2gm QID. Plan: daughter extensively updated by phone this evening Admission and Anticipated Discharge Date Admission Date: April 30, 2021 Subjective patient with multiple complaints - 1. back pain with pain in the right leg. latter starts near the lateral right knee and travels up the lateral leg. throbbing, shooting pain. 2. weakness left hip flexion - chronic. 3. Left heel pain x 2 weeks. no injury to her recollection. 4. thirsty, asks for ice chips and water. 5. severe edema, getting worse over several months despite diuretics. uses lymphedema wraps at home. 6. urinary frequency and incontinence; despite Purewick she has leaking around the catheter and is wet. Physical Exam Physical Exam: gen - morbidly obese, looks mildly dehydrated and tired mouth - MM dry neck - no JVD heart - heart tones distant, RRR, s1 s2, no murmur lungs - CTA b/l, no rales abd - soft NT ND liver edge palpable BS+ ext - severe lymphedema from the feet to the thighs, pulses 2+ b/l musculo - b/l knees with crepitus but not warm, no effusion; left heel - no deformity, no effusion of ankle, tender over plantar fascial insertion on the heel with palpation; no skin ulcer on the heel neuro - L hip flexion strength 3-4/5; R hip flexion strength near 5/5; distal strength b/l ankles/feet 5/5 skin - b/l cellulitis of shins, warm erythema present; no ulcers; chronic venous stasis changes b/l shins Results & Data Results & Data ([facility]) Vital Signs (Past 12 Hours) Vital Signs Temp Pulse Pulse Pulse Resp BP Pulse Ox 04/30/21 16:04 70 18 95 04/30/21 16:00 36.9 C 72 22 164/71 H 92 04/30/21 14:00 73 19 137/77 94 04/30/21 13:55 75 16 133/98 94 04/30/21 12:00 71 17 140/81 93 04/30/21 09:00 82 22 122/81 96 04/30/21 08:00 68 16 136/72 93 PG Care Time/CCT Total # of Minutes Spent Total Time Spent with Patient: Total time spent is greater than 50% in coordination of care (as documented) at patient's floor/unit and/or counseling patient: Coding Level of Care Code None Diagnoses Cellulitis of both lower extremities L03.115; L03.116 Back pain M54.41 Back pain laterality: right Back pain location: low back pain Chronicity: acute Sciatica laterality: sciatica of right side Sciatica presence: with sciatica Chronic diastolic (congestive) heart failure I50.32 COPD (chronic obstructive pulmonary disease) J44.9 Hypertension I10 Acute kidney injury N17.9 Lumbar facet arthropathy M47.816 Hypothyroidism E03.9 Morbid obesity E66.01 Gout M10.9 Pain of left heel M79.672 (1) Back pain Back pain laterality: right Back pain location: low back pain Chronicity: acute Sciatica laterality: sciatica of right side Sciatica presence: with sciatica Qualified Code(s): M54.41 - Lumbago with sciatica, right side
[2021-04-30] MEDS: LATANOPROST 0.005% OP SOLN 2.5 ML BTL OPB SCH (20:26)
[2021-05-01] MEDS: HYDROmorphone INJ 0.5 MG/0.5 ML SYR IV PRN ×3 (00:38→19:49)
[2021-05-01] MEDS: AZTREONAM 2,000 MG in DEXTROSE 5% 100 ML IV SCH ×4 (01:26→23:58)
[2021-05-01] MEDS ORDERED: DICLOFENAC SOD 1% GEL 100 GM TUBE EXT PRN (02:47)
[2021-05-01] MEDS: LEVOTHYROXINE SODIUM 25 MCG TABLET PO SCH (05:58)
[2021-05-01 06:45] LABS: Basophils # (auto) 0.03 K/uL (0-0.2); Basophils % (auto) 0.3 %; Eosinophils # (auto) 0.47 K/uL (0-0.5); Eosinophils % (auto) 4.3 %; Hematocrit (blood only) 35.7 % (37-47); Hemoglobin 11.5 g/dL (12.0-16.0); Immature Granulocytes # (auto) 0.04 K/uL (0.00-0.02); Immature Granulocytes % (auto) 0.4 %; Lymphocytes # (auto) 2.47 K/uL (1.2-3.4); Lymphocytes % (auto) 22.8 %; Mean Corpuscular Hemoglobin 29.5 pg (25-34); Mean Corpuscular Hgb Conc 32.2 g/dL (32-36); Mean Corpuscular Volume 91.5 fL (80-100); Mean Platelet Volume 11.5 fL (7.4-10.4); Monocytes # (auto) 1.13 K/uL (0.11-0.59); Monocytes % (auto) 10.4 %; Neutrophils % (auto) 61.8 %; Platelet Count 257 K/uL (130-400); RDW Coefficient of Variation 14.8 % (11.5-14.5); RDW Standard Deviation 49.7 fL (36.4-46.3); White Blood Count 10.84 K/uL (4.8-10.8)
[2021-05-01 07:13] LABS: Albumin Level 2.6 gm/dl (3.4-5.0); BUN Creatinine Ratio 33.3 (10-20); Calcium 9.5 mg/dl (8.5-10.1); Creatinine Clr Calc Pharmacy 56.4 ml/min; Est GFR (African American) 41.4 ml/min; Est GFR (Non-African American) 35.7 ml/min; Magnesium 2.4 mg/dl (1.8-2.4); Potassium 3.8 mmol/L (3.5-5.1)
[2021-05-01 07:24] LABS: Albumin Globulin Ratio 0.5 (0.9-2); Bilirubin,Total 0.6 mg/dl (0.2-1); Thyroid Stimulating Hormone 0.784 uIu/ml (0.300-4.500); Total Protein 7.6 gm/dl (6.4-8.2)
[2021-05-01] MEDS: MULTIVITAMIN TAB PO SCH (08:21)
[2021-05-01] MEDS: allopurinoL 300 MG TAB PO SCH (08:21)
[2021-05-01] MEDS: MAGNESIUM OXIDE 400 MG TAB PO SCH (08:21)
[2021-05-01] MEDS: ASPIRIN 81 MG ECTAB PO SCH (08:21)
[2021-05-01] MEDS: ENOXAPARIN 80 MG/0.8 ML SYR SQ SCH (08:22)
[2021-05-01] MEDS: TRIAMCINOLONE ACET 0.1% CR 15 GM TUBE TOP SCH ×2 (08:23→20:23)
[2021-05-01] MEDS: DAPTOmycin 600 MG in SYRINGE 0 ML IV SCH (08:41)
--- NOTE | 2021-05-01 09:43 | Magnetic Resonance Report ---
MR lumbar spine wo con CLINICAL HISTORY: 70 years-old Female with suspected severe spinal stenosis. Chronic low back pain w ith radiation into the lower legs. COMPARISON: CT lumbar spine 04/30/2021 TECHNIQUE: Multiplanar, multi sequence MRI of the lumbar spine was performed without intravenous cont rast. FINDINGS: There is pelvocaliectasis noted within the left kidney. No abdominal aortic aneurysm. 10 de grees levoscoliosis measured from L2-L5. Motion degraded exam. Notably, this limits evaluation of the central canal or neural foramina. Moderate Modic type I endplate degeneration at L2-L3. The conus me dullaris terminates at L1-L2. Mild nonspecific edema within the paraspinal musculature of the lower l umbar spine. T12-L1: Moderate intervertebral disc space narrowing with spondylitic spurring and moderate facet ar throsis. No significant central canal or left neural foraminal narrowing. There is mild to moderate r ight foraminal stenosis. L1-L2: Mild intervertebral disc space narrowing with spondylitic spurring, ligamentum flavum thicken ing with moderate to severe facet arthrosis and trace facet effusions. Mild right neural foraminal na rrowing. The central canal and left neural foramen appear patent. L2-L3: Mild intervertebral disc space narrowing with spondylitic spurring, posterior annular disc bu lge with disc osteophyte complex. Ligamentum flavum thickening with severe facet arthrosis and small facet effusions. Mild to moderate central canal stenosis with AP dimension of the thecal sac measurin g approximately 8 mm. There is suggestion of a left paracentral disc protrusion. Moderate left latera l recess narrowing. [id number] bilateral neural foraminal narrowing. L3-L4: Mild intervertebral disc space narrowing with spondylitic spurring and posterior disc osteoph yte complex. Ligamentum flavum thickening with moderate to severe facet arthrosis and trace right fac et effusion. Mild central canal stenosis with AP dimension of the thecal sac measuring 9 mm. Mild bridgett ateral neural foraminal narrowing. L4-L5: Spondylitic spurring with circumferential annular disc bulge and posterior disc osteophyte co mplex. Ligamentum flavum thickening with severe facet arthrosis and moderate facet effusions. Mild ce ntral canal stenosis with AP dimension of the thecal sac measuring 9 mm. Mild to moderate right with moderate left neural foraminal narrowing. L5-S1: Spondylitic spurring with small posterior annular disc bulge. Ligamentum flavum thickening wi th moderate facet arthrosis. The central canal and right neuroforamen are patent. Mild left neural fo raminal stenosis. IMPRESSION: 1. Motion degraded exam which limits evaluation of the central canal and neural foramina. 2. Multilevel central canal and neural foraminal narrowing as detailed above. 3. Moderate Modic type I endplate degeneration at L2-L3. 4. Mild lumbar levoscoliosis. ACT 112: Negative or not required by law. The above report was generated using voice recognition software. It may contain grammatical, syntax o r spelling errors. Dictated: 05/01/2021 8:07 AM Transcribed: 05/01/2021 9:39 AM [place] [id number] [email or web address] Electronically signed by: Cole Alvarado M.D. 05/01/2021 9:42 AM
[2021-05-01] MEDS ORDERED: DAPTOmycin 400 MG in SYRINGE 0 ML IV SCH (10:00)
[2021-05-01] MEDS: LATANOPROST 0.005% OP SOLN 2.5 ML BTL OPB SCH (20:24)
--- NOTE | 2021-05-01 21:41 | Hospitalist Progress Note ---
Date of Service May 01, 2021 Assessment & Plan (1) Cellulitis of both lower extremities: Plan: In the setting of chronic lymphedema. IMPROVED. Cont daptomycin IV and aztreonam IV. serial exams. follow blood cx's but thus far negative. holding diuretics because of JAZZY but resume when able. (2) Lumbar facet arthropathy: Plan: patient with severe back pain and RLE radicular pain along with left hip flexion weakness upon admission. MRI lumbar spine with numerous findings/abnormalities which would explain her complaints. When cellulitis is improved/resolved could consider a dexamethasone steroid course. In meantime - pain meds, and start gabapentin 100mg BID for neuropathic/radicular pain. Would refer to pain management post-d/c as the back issues are likely to persist. VERY poor candidate for any surgical intervention thus defer on ortho consultation. Cont PT/OT. (3) Back pain: Plan: see #2 above (4) Chronic diastolic (congestive) heart failure: Plan: Despite her LE edema she otherwise looked volume contracted at presentation - c/o thirst, creatinine high at 1.5 (baseline 1.1), dry MM, 100% sats in room air. I cannot exclude element of chronic right-sided CHF. Echo this admission, however, could not really evaluate the right heart due to poor windows. Cont to hold her diuretics another day until renal function returns to baseline. Re-eval tomorrow. (5) COPD (chronic obstructive pulmonary disease): Plan: Lung exam normal. no wheezes. sats wnl. (6) Hypertension: Plan: hold diuretics as above (7) Acute kidney injury: Plan: Urine Na low-normal c/w developing solute depletion. This is c/w chronic diuretic usage and recent dehydration/over-diuresis. Holding diuretics. Supportive care. repeat BMP am (8) Hypothyroidism: Plan: Continue levothyroxine 25 mcg daily TSH 07/2020 wnl repeat TSH today wnl (9) Morbid obesity: Plan: BMI nearly 60 (10) Gout: Plan: Continue allopurinol 300 mg daily for prophylaxis I cannot exclude that left foot pain isn't gout check a uric acid level in the am (11) Pain of left heel: Plan: x-rays neg for fracture no ulceration on skin exam gout of left foot? plantar fascitis? other? (12) Lymphedema: Plan: TSH wnl. No proteinuria. No h/o liver disease but hasn't had dedicated imaging of liver in several years - at some point would investigate - at risk of CARVER. Could have right sided CHF contributing to her chronic edema but echo here was limited. Dopplers of legs neg for DVT. most of her edema is truly lymphedema in the setting of severe morbid obesity. resume diuretics when JAZZY is resolved. she does lymphedema wraps at home - resume after d/c. Plan: daughter extensively updated by phone yesterday evening cont PT/OT multiple medical issues improved today Admission and Anticipated Discharge Date Admission Date: April 30, 2021 Subjective patient feeling much better today appetite improved able to sit in chair for several hours and work with therapy heel protectors are on heels and the left heel feels better w/ such back and right leg pain are modestly better we discussed her MRI findings discussed possible use of gabapentin for neuropathic pain - numerous levels on the MRI with foraminal stenosis, etc - likely leading to radicular pain she thinks she took it once and that there was some concern it caused "bruising" ? Review of Systems Review of Systems: gen - no further fevers or chills cv - no orthopnea pulm - no dyspnea or cough GI - no abd pain, nausea, or emesis Physical Exam Physical Exam: gen - morbidly obese, looks much better today mouth - MMM neck - no JVD heart - RRR, s1 s2, no murmur lungs - CTA b/l, no rales, no wheeze abd - soft NT ND; liver edge palpable; BS+ ext - severe lymphedema from the feet to the thighs, pulses 2+ b/l musculo - left heel - no deformity, no effusion of ankle, less tenderness over plantar fascial insertion on the heel with palpation; no skin ulcer on the heel skin - b/l cellulitis of shins today much improved, RLE has improved more so than LLE; background of venous stasis changes on shins Results & Data Results & [facility] ([facility]) Vital Signs (Past 12 Hours) Vital Signs Temp Pulse Resp BP Pulse Ox 05/01/21 15:00 36.6 C 72 18 137/72 95 Laboratory Results Laboratory Results - last 24 hr 05/01/21 05/01/21 05/01/21 05:37 05:37 11:40 WBC 10.84 H RBC 3.90 L Hgb 11.5 L Hct 35.7 L MCV 91.5 MCH 29.5 MCHC 32.2 RDW Std Deviation 49.7 H RDW Coeff of Daron 14.8 H Plt Count 257 MPV 11.5 H Immature Gran % (Auto) 0.4 Neut % (Auto) 61.8 Lymph % (Auto) 22.8 [place] % (Auto) 10.4 Eos % (Auto) 4.3 Baso % (Auto) 0.3 Neut # (Auto) 6.70 H Lymph # (Auto) 2.47 [place] # (Auto) 1.13 H Eos # (Auto) 0.47 Baso # (Auto) 0.03 Immature Gran # (Auto) 0.04 H Sodium 130 L Potassium 3.8 Chloride 93 L Carbon Dioxide 29 Anion Gap 8.0 BUN 50 H Creatinine 1.49 H Est Cr Clr Drug Dosing 56.4 Est GFR ( Amer) 41.4 Est GFR (Non-Af Amer) 35.7 BUN/Creatinine Ratio 33.3 H Glucose 115 H Calcium 9.5 Magnesium 2.4 Total Bilirubin 0.6 AST 25 ALT 31 Alkaline Phosphatase 79 Total Creatine Kinase 105 Total Protein 7.6 Albumin 2.6 L Globulin 5.0 H Albumin/Globulin Ratio 0.5 L TSH 0.784 Urine Osmolality 474 L Ur Random Sodium 05/01/21 11:40 WBC RBC Hgb Hct MCV MCH MCHC RDW Std Deviation RDW Coeff of Daron Plt Count MPV Immature Gran % (Auto) Neut % (Auto) Lymph % (Auto) [place] % (Auto) Eos % (Auto) Baso % (Auto) Neut # (Auto) Lymph # (Auto) [place] # (Auto) Eos # (Auto) Baso # (Auto) Immature Gran # (Auto) Sodium Potassium Chloride Carbon Dioxide Anion Gap BUN Creatinine Est Cr Clr Drug Dosing Est GFR ( Amer) Est GFR (Non-Af Amer) BUN/Creatinine Ratio Glucose Calcium Magnesium Total Bilirubin AST ALT Alkaline Phosphatase Total Creatine Kinase Total Protein Albumin Globulin Albumin/Globulin Ratio TSH Urine Osmolality Ur Random Sodium 27 Diagnostic Findings Lumbar Spine MRI 04/30/21 12:46 MR lumbar spine wo con CLINICAL HISTORY: 70 years-old Female with suspected severe spinal stenosis. Chronic low back pain with radiation into the lower legs. COMPARISON: CT lumbar spine 04/30/2021 TECHNIQUE: Multiplanar, multi sequence MRI of the lumbar spine was performed without intravenous contrast. FINDINGS: There is pelvocaliectasis noted within the left kidney. No abdominal aortic aneurysm. 10 degrees levoscoliosis measured from L2-L5. Motion degraded exam. Notably, this limits evaluation of the central canal or neural foramina. Moderate Modic type I endplate degeneration at L2-L3. The conus medullaris terminates at L1-L2. Mild nonspecific edema within the paraspinal musculature of the lower lumbar spine. T12-L1: Moderate intervertebral disc space narrowing with spondylitic spurring and moderate facet arthrosis. No significant central canal or left neural foraminal narrowing. There is mild to moderate right foraminal stenosis. L1-L2: Mild intervertebral disc space narrowing with spondylitic spurring, li gamentum flavum thickening with moderate to severe facet arthrosis and trace facet effusions. Mild right neural foraminal narrowing. The central canal and left neural foramen appear patent. L2-L3: Mild intervertebral disc space narrowing with spondylitic spurring, posterior annular disc bulge with disc osteophyte complex. Ligamentum flavum thickening with severe facet arthrosis and small facet effusions. Mild to moderate central canal stenosis with AP dimension of the thecal sac measuring approximately 8 mm. There is suggestion of a left paracentral disc protrusion. Moderate left lateral recess narrowing. [id number] bilateral neural foraminal narrowing. L3-L4: Mild intervertebral disc space narrowing with spondylitic spurring and posterior disc osteophyte complex. Ligamentum flavum thickening with moderate to severe facet arthrosis and trace right facet effusion. Mild central canal stenosis with AP dimension of the thecal sac measuring 9 mm. Mild bilateral neural foraminal narrowing. L4-L5: Spondylitic spurring with circumferential annular disc bulge and posterior disc osteophyte complex. Ligamentum flavum thickening with severe facet arthrosis and moderate facet effusions. Mild central canal stenosis with AP dimension of the thecal sac measuring 9 mm. Mild to moderate right with moderate left neural foraminal narrowing. L5-S1: Spondylitic spurring with small posterior annular disc bulge. Ligamentum flavum thickening with moderate facet arthrosis. The central canal and right neuroforamen are patent. Mild left neural foraminal stenosis. IMPRESSION: 1. Motion degraded exam which limits evaluation of the central canal and neural foramina. 2. Multilevel central canal and neural foraminal narrowing as detailed above. 3. Moderate Modic type I endplate degeneration at L2-L3. 4. Mild lumbar levoscoliosis. ACT 112: Negative or not required by law. The above report was generated using voice recognition software. It may contain grammatical, syntax or spelling errors. Dictated: 05/01/2021 8:07 AM Transcribed: 05/01/2021 9:39 AM [place] [id number] [email or web address] Electronically signed by: Cole Alvarado M.D. 05/01/2021 9:42 AM PG Care Time/CCT Total # of Minutes Spent Total Time Spent with Patient: Total time spent is greater than 50% in coordination of care (as documented) at patient's floor/unit and/or counseling patient: Coding Level of Care Code 83493 Subseq Hosp Care Lvl 3 Diagnoses Cellulitis of both lower extremities L03.115; L03.116 Back pain M54.41 Back pain laterality: right Back pain location: low back pain Chronicity: acute Sciatica laterality: sciatica of right side Sciatica presence: with sciatica Chronic diastolic (congestive) heart failure I50.32 COPD (chronic obstructive pulmonary disease) J44.9 Hypertension I10 Acute kidney injury N17.9 Lumbar facet arthropathy M47.816 Hypothyroidism E03.9 Morbid obesity E66.01 Gout M10.9 Pain of left heel M79.672 Lymphedema I89.0 (1) Back pain Back pain laterality: right Back pain location: low back pain Chronicity: acute Sciatica laterality: sciatica of right side Sciatica presence: with sciatica Qualified Code(s): M54.41 - Lumbago with sciatica, right side
[2021-05-01] MEDS: DICLOFENAC SOD 1% GEL 100 GM TUBE EXT SCH (22:02)
[2021-05-01] MEDS: ACETAMINOPHEN 325 MG TAB PO PRN (23:58)
[2021-05-02] MEDS: LEVOTHYROXINE SODIUM 25 MCG TABLET PO SCH (06:05)
[2021-05-02] MEDS: DAPTOmycin 600 MG in SYRINGE 0 ML IV SCH (08:18)
[2021-05-02] MEDS: ENOXAPARIN 80 MG/0.8 ML SYR SQ SCH (08:20)
[2021-05-02] MEDS: allopurinoL 300 MG TAB PO SCH (08:20)
[2021-05-02] MEDS: AZTREONAM 2,000 MG in DEXTROSE 5% 100 ML IV SCH (08:20)
[2021-05-02] MEDS: ASPIRIN 81 MG ECTAB PO SCH (08:20)
[2021-05-02] MEDS: MULTIVITAMIN TAB PO SCH (08:20)
[2021-05-02] MEDS: TRIAMCINOLONE ACET 0.1% CR 15 GM TUBE TOP SCH ×2 (08:21→20:05)
[2021-05-02] MEDS: LATANOPROST 0.005% OP SOLN 2.5 ML BTL OPB SCH ×2 (08:21→22:18)
[2021-05-02] MEDS: DICLOFENAC SOD 1% GEL 100 GM TUBE EXT SCH ×4 (08:22→20:03)
[2021-05-02] MEDS: MAGNESIUM OXIDE 400 MG TAB PO SCH (08:22)
[2021-05-02] MEDS: GABAPENTIN 100 MG CAP PO SCH ×2 (08:23→20:04)
[2021-05-02 09:43] LABS: BUN Creatinine Ratio 38.7 (10-20); Calcium 9.5 mg/dl (8.5-10.1); Creatinine Clr Calc Pharmacy 70.7 ml/min; Est GFR (African American) 54.3 ml/min; Est GFR (Non-African American) 46.9 ml/min; Potassium 3.6 mmol/L (3.5-5.1); Uric Acid 7.4 mg/dl (2.6-7.2)
--- NOTE | 2021-05-02 09:49 | Hospitalist Progress Note ---
Date of Service May 02, 2021 Assessment & Plan (1) Cellulitis of both lower extremities: Plan: In the setting of chronic lymphedema. Improved. Will transition to PO antibiotics today. Will need coverage for UTI also. She has multiple drug allergies including reported h/o anaphylaxis to PCN. No record of her ever using cephalosporins as an outpatient. Therefore, will switch to Levaquin to cover both problems (renal dose). (2) Urinary tract infection: Plan: Urine culture growing pansensitive E. Coli. Patient says that she was having urinary incontinence (unusual for her) prior to admission. She says this had been going on since her hospitalization at [place] where she was catheterized. Will treat with Levaquin PO. (3) Lumbar facet arthropathy: Plan: patient with severe back pain and RLE radicular pain along with left hip flexion weakness upon admission. MRI lumbar spine with numerous findings/abnormalities which would explain her complaints. When cellulitis is improved/resolved could consider a dexamethasone steroid course. In meantime - pain meds, and start gabapentin 100mg BID for neuropathic/radic ular pain. Would refer to pain management post-d/c as the back issues are likely to persist. VERY poor candidate for any surgical intervention thus defer on ortho consultation. Consult PT/OT. Although patient would like to go home, she is not sure she could manage right now due to the pain in her back and legs. (4) Chronic diastolic (congestive) heart failure: Plan: Despite her LE edema she otherwise looked volume contracted at presentation - c/o thirst, creatinine high at 1.5 (baseline 1.1), dry MM, 100% sats in room air . Echo this admission, however, could not really evaluate the right heart due to poor windows. Renal function back to baseline today and she is hypertensive. Will restart oral diuretics. (5) COPD (chronic obstructive pulmonary disease): Plan: Lung exam normal. no wheezes. sats wnl. (6) Hypertension: Plan: Restart diuretics today. (7) Acute kidney injury: Plan: Creatinine improved. Serum sodium still low but this is chronic for her. Will continue to monitor as diuretics are restarted. (8) Hypothyroidism: Plan: Continue levothyroxine 25 mcg daily TSH is normal. (9) Morbid obesity: Plan: BMI nearly 60 (10) Gout: Plan: Continue allopurinol 300 mg daily for prophylaxis Her foot pain has improved significantly which argues against gout flare as the cause. (11) Lymphedema: Plan: TSH wnl. No proteinuria. No h/o liver disease but hasn't had dedicated imaging of liver in several years - at some point would investigate - at risk of CARVER. Could have right sided CHF contributing to her chronic edema but echo here was limited. Resume diuretics today. Dopplers of legs neg for DVT. most of her edema is truly lymphedema in the setting of severe morbid obesity. she does lymphedema wraps at home - resume after d/c. Admission and Anticipated Discharge Date Admission Date: April 30, 2021 Subjective Patient says that she is still having pain in her hips and legs. She denies any numbness or tingling. She says that the swelling has gone down significantly. She says that the pain in her foot and heel has improved. She tells me that her appetite is good. She moved her bowels yesterday. She has not asked for any hydromorphone today. She was started on gabapentin yesterday. She tells me that she was up and sat in a chair yesterday, but she required a lot of assistance. She would like to go home, but she does not think she is strong enough yet. Review of Systems Review of Systems: gen - no further fevers or chills cv - no orthopnea pulm - no dyspnea or cough GI - no abd pain, nausea, or emesis Physical Exam Physical Exam: gen - pleasant, alert, no acute distress mouth - MMM neck - no JVD heart - RRR, s1 s2, no murmur lungs - CTA b/l, no rales, no wheeze abd - soft NT ND; no mass ext - lymphedema from the feet to the thighs, pulses 2+ b/l skin - b/l cellulitis of shins much improved, still very mild warmth of left david and top of right foot but greatly improved as per patient. Results & Data Results & Data ([facility]) Vital Signs (Past 12 Hours) Vital Signs Temp Pulse Resp BP BP Pulse Ox 05/02/21 07:51 97.7 F 65 16 153/77 H 97 05/01/21 22:06 98.8 F 75 16 125/69 94 PG Care Time/CCT Total # of Minutes Spent Total Time Spent with Patient: Total time spent is greater than 50% in coordination of care (as documented) at patient's floor/unit and/or counseling patient: Coding Level of Care Code 67571 Subseq Hosp Care Lvl 3 Diagnoses Cellulitis of both lower extremities L03.115; L03.116 Lumbar facet arthropathy M47.816 Chronic diastolic (congestive) heart failure I50.32 COPD (chronic obstructive pulmonary disease) J44.9 Hypertension I10 Acute kidney injury N17.9 Hypothyroidism E03.9 Morbid obesity E66.01 Gout M10.9 Lymphedema I89.0 Urinary tract infection N39.0
[2021-05-02] MEDS: levoFLOXacin 750 MG TAB PO SCH (12:15)
[2021-05-02] MEDS: ACETAMINOPHEN 325 MG TAB PO PRN ×2 (12:17→22:09)
[2021-05-02] MEDS: HYDROmorphone INJ 0.5 MG/0.5 ML SYR IV PRN (19:17)
[2021-05-02] MEDS: FUROSEMIDE 40 MG TAB PO SCH (20:03)
[2021-05-02] MEDS: SPIRONOLACTONE 25 MG TAB PO SCH (20:04)
[2021-05-03] MEDS: ACETAMINOPHEN 325 MG TAB PO PRN (03:30)
[2021-05-03] MEDS: LEVOTHYROXINE SODIUM 25 MCG TABLET PO SCH (06:11)
[2021-05-03 06:45] LABS: BUN Creatinine Ratio 35.3 (10-20); Creatinine Clr Calc Pharmacy 63.7 ml/min; Est GFR (African American) 47.9 ml/min; Est GFR (Non-African American) 41.3 ml/min; Potassium 4.1 mmol/L (3.5-5.1)
[2021-05-03] MEDS: SPIRONOLACTONE 25 MG TAB PO SCH ×2 (08:09→20:56)
[2021-05-03] MEDS: FUROSEMIDE 40 MG TAB PO SCH ×2 (08:09→20:55)
[2021-05-03] MEDS: MULTIVITAMIN TAB PO SCH (08:09)
[2021-05-03] MEDS: GABAPENTIN 100 MG CAP PO SCH ×2 (08:09→20:56)
[2021-05-03] MEDS: ASPIRIN 81 MG ECTAB PO SCH (08:10)
[2021-05-03] MEDS: MAGNESIUM OXIDE 400 MG TAB PO SCH (08:10)
[2021-05-03] MEDS: DICLOFENAC SOD 1% GEL 100 GM TUBE EXT SCH ×4 (08:10→20:54)
[2021-05-03] MEDS: allopurinoL 300 MG TAB PO SCH (08:10)
[2021-05-03] MEDS: ENOXAPARIN 80 MG/0.8 ML SYR SQ SCH (08:10)
[2021-05-03] MEDS: TRIAMCINOLONE ACET 0.1% CR 15 GM TUBE TOP SCH ×2 (08:10→20:55)
--- NOTE | 2021-05-03 12:55 | XRay Report ---
XR foot RT min 3V routine CLINICAL HISTORY: right foot pain TECHNIQUE: 3 views of the right foot were obtained. Comparison: None available at the time of this dictation. FINDINGS: No fractures are present. Hallux valgus deformity is noted. The joint spaces are well preserved. Diff use soft tissue swelling is seen about the right foot. IMPRESSION: No evidence of acute bony injury. ACT 112: Negative or not required by law. Electronically signed by: Rodrigo Bearden M.D. 05/03/2021 12:54 PM
--- NOTE | 2021-05-03 16:52 | Hospitalist Progress Note ---
Date of Service May 03, 2021 Assessment & Plan (1) Cellulitis of both lower extremities: Plan: In the setting of chronic lymphedema. Improving. Switched to renally dosed Levaquin yesterday. Levaquin to cover UTI as well. (2) Urinary tract infection: Plan: Urine culture growing pansensitive E. Coli. Patient says that she was having urinary incontinence (unusual for her) prior to admission. She says this had been going on since her hospitalization at [facility] where she was catheterized. Started on renally dosed PO Levaquin yesterday. (3) Lumbar facet arthropathy: Plan: Patient with severe back pain and RLE radicular pain along with left hip flexion weakness upon admission. Pain improved today. MRI lumbar spine with numerous findings/abnormalities which would explain her complaints. When cellulitis is improved/resolved could consider a dexamethasone steroid course. In meantime - pain meds, and start gabapentin 100mg BID for neuropathic/radicular pain. Would refer to pain management post-d/c as the back issues are likely to persist. VERY poor candidate for any surgical intervention thus defer on ortho consulta tion. Consult PT/OT- pt recommends rehab placement. (4) Chronic diastolic (congestive) heart failure: Plan: Despite her LE edema she otherwise looked volume contracted at presentation - c/o thirst, creatinine high at 1.5 (baseline 1.1), dry MM, 100% sats in room air. Echo this admission, however, could not really evaluate the right heart due to poor windows. Oral diuretics were restarted yesterday with improved Cr. However, Cr again bumped to 1.32 this AM. Repeat BMP tomorrow. May need to hold Lasix again. (5) COPD (chronic obstructive pulmonary disease): Plan: Stable. Lung exam normal. no wheezes. sats wnl. (6) Hypertension: Plan: Restarted diuretics yesterday. May need to hold again as Cr bumped again today. Repeat BMP in AM. BP stable at 129/72 this morning. (7) Acute kidney injury: Plan: Creatinine improved yesterday, but bumped again to 131 this morning. Serum sodium still low but this is chronic for her. Repeat BMP in AM. (8) Hypothyroidism: Plan: Continue levothyroxine 25 mcg daily TSH is normal. (9) Morbid obesity: Plan: BMI nearly 60 Encourage weight loss. (10) Gout: Plan: Previously c/o left foot pain which has improved. Now c/o right foot pain this morning. ? r/t gout vs cellulitis. XR of the left calcaneus on 04/30/21 was normal. XR of the right foot performed today. Normal as well. Continue allopurinol 300 mg daily for prophylaxis. Could consider course of Prednisone if pain persists. (11) Lymphedema: Plan: TSH wnl. No proteinuria. No h/o liver disease but hasn't had dedicated imaging of liver in several years - at some point would investigate - at risk of CARVER. Could have right sided CHF contributing to her chronic edema but echo here was limited. Resumed diuretics yesterday. Dopplers of legs neg for DVT. Most of her edema is truly lymphedema in the setting of severe morbid obesity. Patient has lymphedema pumps and Farrow wraps for home. She has done lymphedema therapy in the past. Will provide new 1 layer tubigrip while inpatient. Encourage elevation of legs, low sodium diet, weight loss. (12) DVT prophylaxis: Plan: Lovenox. Plan: PT recommending rehab placement. Will need to arrange if patient agreeable. Admission and Anticipated Discharge Date Admission Date: April 30, 2021 Subjective Patient c/o right foot and right knee pain this morning. PT/OT eval today. PT recommending rehab placement. Review of Systems Review of Systems: All systems reviewed & are unremarkable except as noted in Subjective Physical Exam Physical Exam: Temp Pulse Resp BP Pulse Ox 36.9 C 66 16 143/70 H 99 05/03/21 14:26 05/03/21 14:26 05/03/21 14:26 05/03/21 14:26 05/03/21 14:26 + lower extremity edema. Erythema appears to be resolving. No open areas or areas of drainage noted. Right foot pedal edema noted on exam today. Dorsal beck tender to palpation. Constitutional: + morbidly obese; no acute distress Eyes: + anicteric sclerae ENMT: Ears: no hearing impairment Neck: normal visual inspection Respiratory: normal respiratory effort, lungs clear to auscultation Cardiovascular: Rate/Rhythm: regular rate and regular rhythm Vessels: no JVD Extremities: + edema Gastrointestinal (Abdomen): Inspection/Auscultation: normal bowel sounds Percussion/Palpation: abdomen soft; abdomen nontender Musculoskeletal: Head/Neck/Chest: normocephalic Psychiatric: A+Ox3, euthymic affect Results & Data Results & Data ([facility]) Vital Signs (Past 12 Hours) Vital Signs Temp Pulse Resp BP Pulse Ox 05/03/21 14:26 36.9 C 66 16 143/70 H 99 05/03/21 12:57 96 05/03/21 07:40 36.7 C 59 L 16 129/72 96 PG Care Time/CCT Total # of Minutes Spent Total Time Spent with Patient: Total time spent is greater than 50% in coordination of care (as documented) at patient's floor/unit and/or counseling patient: Coding Level of Care Code 06673 Subseq Hosp Care Lvl 2 History Expanded Problem Focused Exam Expanded Problem Focused Medical Decision Making Moderate Complexity Diagnoses Cellulitis of both lower extremities L03.115; L03.116 Urinary tract infection N39.0 Lumbar facet arthropathy M47.816 Chronic diastolic (congestive) heart failure I50.32 COPD (chronic obstructive pulmonary disease) J44.9 Hypertension I10 Acute kidney injury N17.9 Hypothyroidism E03.9 Morbid obesity E66.01 Gout M10.9 Lymphedema I89.0 DVT prophylaxis Z29.9
[2021-05-03] MEDS: LATANOPROST 0.005% OP SOLN 2.5 ML BTL OPB SCH (20:54)
[2021-05-03] MEDS: HYDROmorphone INJ 0.5 MG/0.5 ML SYR IV PRN (22:52)
[2021-05-04] MEDS: ACETAMINOPHEN 325 MG TAB PO PRN ×2 (01:05→15:37)
[2021-05-04] MEDS: LEVOTHYROXINE SODIUM 25 MCG TABLET PO SCH (06:16)
[2021-05-04 07:02] LABS: Basophils # (auto) 0.04 K/uL (0-0.2); Basophils % (auto) 0.4 %; Eosinophils % (auto) 4.3 %; Hematocrit (blood only) 37.3 % (37-47); Hemoglobin 12.1 g/dL (12.0-16.0); Immature Granulocytes # (auto) 0.06 K/uL (0.00-0.02); Immature Granulocytes % (auto) 0.7 %; Lymphocytes # (auto) 2.54 K/uL (1.2-3.4); Lymphocytes % (auto) 27.6 %; Mean Corpuscular Hemoglobin 29.7 pg (25-34); Mean Corpuscular Hgb Conc 32.4 g/dL (32-36); Mean Corpuscular Volume 91.4 fL (80-100); Mean Platelet Volume 10.2 fL (7.4-10.4); Monocytes % (auto) 9.8 %; Neutrophils # (auto) 5.27 K/uL (1.4-6.5); Neutrophils % (auto) 57.2 %; Platelet Count 267 K/uL (130-400); RDW Coefficient of Variation 14.5 % (11.5-14.5); RDW Standard Deviation 48.2 fL (36.4-46.3); Red Blood Count 4.08 M/uL (4.2-5.4); White Blood Count 9.21 K/uL (4.8-10.8)
[2021-05-04 07:23] LABS: Calcium 10.1 mg/dl (8.5-10.1); Creatinine Clr Calc Pharmacy 71.3 ml/min; Est GFR (African American) 54.9 ml/min; Est GFR (Non-African American) 47.4 ml/min
[2021-05-04] MEDS: TRIAMCINOLONE ACET 0.1% CR 15 GM TUBE TOP SCH ×2 (08:13→20:52)
[2021-05-04] MEDS: DICLOFENAC SOD 1% GEL 100 GM TUBE EXT SCH ×4 (08:13→20:52)
[2021-05-04] MEDS: ENOXAPARIN 80 MG/0.8 ML SYR SQ SCH (08:14)
[2021-05-04] MEDS: MAGNESIUM OXIDE 400 MG TAB PO SCH (08:15)
[2021-05-04] MEDS: ASPIRIN 81 MG ECTAB PO SCH (08:15)
[2021-05-04] MEDS: allopurinoL 300 MG TAB PO SCH (08:15)
[2021-05-04] MEDS: FUROSEMIDE 40 MG TAB PO SCH ×2 (08:15→20:53)
[2021-05-04] MEDS: MULTIVITAMIN TAB PO SCH (08:15)
[2021-05-04] MEDS: GABAPENTIN 100 MG CAP PO SCH ×2 (08:15→20:52)
[2021-05-04] MEDS: SPIRONOLACTONE 25 MG TAB PO SCH ×2 (08:15→20:53)
--- NOTE | 2021-05-04 11:39 | Hospitalist Progress Note ---
Date of Service May 04, 2021 Assessment & Plan (1) Cellulitis of both lower extremities: Plan: In the setting of chronic lymphedema. Appears nearly resolved. Switched to renally dosed Levaquin 2 days ago. Day #2. Levaquin to cover UTI as well. (2) Urinary tract infection: Plan: Urine culture growing pansensitive E. Coli. Patient says that she was having urinary incontinence (unusual for her) prior to admission. She says this had been going on since her hospitalization at [place] where she was catheterized. Started on renally dosed PO Levaquin yesterday. 10 day course of therapy plann ed. Day #2 today. (3) Lumbar facet arthropathy: Plan: Patient with severe back pain and RLE radicular pain along with left hip flexion weakness upon admission. Pain worsened today. Patient does admit pain is improved with movement and ambulation. MRI lumbar spine with numerous findings/abnormalities which would explain her c omplaints. Will start her on a Prednisone taper today for pain. She has been started on gabapentin 100mg BID for neuropathic/radicular pain this admission as well. Would refer to pain management post-d/c as the back issues are likely to persist. VERY poor candidate for any surgical intervention thus defer on ortho consultation. Consult PT/OT- pt recommends rehab placement. Patient currently declines. She would like to return home with home health. She is currently not safe for home. We have discussed that it would be beneficial for her to remain inpatient for a few days with PT and re-evaluate her need for rehab placement. Encourage ambulation. (4) Chronic diastolic (congestive) heart failure: Plan: Despite her LE edema she otherwise looked volume contracted at presentation - c/o thirst, creatinine high at 1.5 (baseline 1.1), dry MM, 100% sats in room air. Echo this admission, however, could not really evaluate the right heart due to poor windows. Oral diuretics were restarted. Cr bumped yesterday, but has returned to her baseline of 1.18 this AM. Continue to monitor. (5) COPD (chronic obstructive pulmonary disease): Plan: Stable. Lung exam normal. no wheezes. sats wnl. (6) Hypertension: Plan: Restarted diuretics. Monitor Cr. BP stable at 129/71 this morning. (7) Acute kidney injury: Plan: Creatinine improved to baseline of 1.18 this AM. Serum sodium still low but this is chronic for her. Repeat BMP in AM. (8) Hypothyroidism: Plan: Continue levothyroxine 25 mcg daily TSH is normal. (9) Morbid obesity: Plan: BMI nearly 60 Encourage weight loss. Encourage ambulation. (10) Gout: Plan: Previously c/o left foot pain which has improved. Now c/o right foot pain yesterday. This has improved this morning as her right low back and leg pain is worse. ? r/t gout vs cellulitis vs obesity. XR of the left calcaneus on 04/30/21 was normal. XR of the right foot performed ton 05/04/21 was normal as well. Continue allopurinol 300 mg daily for prophylaxis. Prednisone 5 day taper starting today for right low back and leg pain. Hopefully this helps with right foot pain as well. (11) Lymphedema: Plan: TSH wnl. No proteinuria. No h/o liver disease but hasn't had dedicated imaging of liver in several years - at some point would investigate - at risk of CARVER. Could have right sided CHF contributing to her chronic edema but echo here was limited. Resumed diuretics yesterday. Dopplers of legs neg for DVT. Most of her edema is truly lymphedema in the setting of severe morbid obesity. Patient has lymphedema pumps and Farrow wraps for home. She has done lymphedema therapy in the past. Will provide new 1 layer tubigrip while inpatient. Encourage elevation of legs, low sodium diet, and weight loss. (12) DVT prophylaxis: Plan: Lovenox. Legs are too large for SCDs. Plan: Continued stay on med-surg as she requires PT and is not safe for home. Pain control as well. Admission and Anticipated Discharge Date Admission Date: April 30, 2021 Subjective Patient c/o worsening right lower back and leg pain today. She states the pain is improved with ambulation. When asked to bend and extend her legs on exam today, she stated the right leg was "too tired." She was able to minimally bend and extend the left leg. Patient was seen by PT yesterday, and they did recommend rehab facility placement as she is a fall risk. She will have inpatient 3-5x per week while inpatient. Patient is declining placement at this time, and would ultimately like to return home with home health. Review of Systems Review of Systems: All systems reviewed & are unremarkable except as noted in Subjective Physical Exam Physical Exam: Temp Pulse Resp BP Pulse Ox 36.8 C 69 16 129/71 92 05/04/21 07:27 05/04/21 07:27 05/04/21 07:27 05/04/21 07:27 05/04/21 07:27 Patient is afebrile. Vital signs stable. Constitutional: + morbidly obese; no acute distress Eyes: + anicteric sclerae ENMT: Ears: no hearing impairment Neck: normal visual inspection Respiratory: normal respiratory effort, lungs clear to auscultation Cardiovascular: Rate/Rhythm: regular rate and regular rhythm Vessels: no JVD Extremities: + edema Gastrointestinal (Abdomen): Inspection/Auscultation: normal bowel sounds Percussion/Palpation: + abdomen tender (tender over Lovenox injection sites ) and abdomen soft Musculoskeletal: Head/Neck/Chest: normocephalic and head atraumatic Extremities: + limited ROM of extremities Skin: no rashes, warm and dry hemosiderosis staining noted bilaterally over the lower extremities Psychiatric: A+Ox3, euthymic affect Results & Data Results & Data ([facility]) Vital Signs (Past 12 Hours) Vital Signs Temp Pulse Resp BP Pulse Ox 05/04/21 07:27 36.8 C 69 16 129/71 92 PG Care Time/CCT Total # of Minutes Spent Total Time Spent with Patient: Total time spent is greater than 50% in coordination of care (as documented) at patient's floor/unit and/or counseling patient: Coding Level of Care Code 95807 Subseq Hosp Care Lvl 2 Diagnoses Cellulitis of both lower extremities L03.115; L03.116 Urinary tract infection N39.0 Lumbar facet arthropathy M47.816 Chronic diastolic (congestive) heart failure I50.32 COPD (chronic obstructive pulmonary disease) J44.9 Hypertension I10 Acute kidney injury N17.9 Hypothyroidism E03.9 Morbid obesity E66.01 Gout M10.9 Lymphedema I89.0 DVT prophylaxis Z29.9
[2021-05-04] MEDS: levoFLOXacin 750 MG TAB PO SCH (11:59)
[2021-05-04] MEDS: predniSONE 10 MG TABLET PO SCH (12:41)
[2021-05-04] MEDS: LATANOPROST 0.005% OP SOLN 2.5 ML BTL OPB SCH (20:53)
[2021-05-05] MEDS: LEVOTHYROXINE SODIUM 25 MCG TABLET PO SCH (05:18)
[2021-05-05 07:01] LABS: Basophils # (auto) 0.01 K/uL (0-0.2); Basophils % (auto) 0.1 %; Eosinophils # (auto) 0.01 K/uL (0-0.5); Eosinophils % (auto) 0.1 %; Hematocrit (blood only) 38.9 % (37-47); Hemoglobin 12.6 g/dL (12.0-16.0); Immature Granulocytes # (auto) 0.03 K/uL (0.00-0.02); Immature Granulocytes % (auto) 0.3 %; Lymphocytes # (auto) 1.95 K/uL (1.2-3.4); Lymphocytes % (auto) 18.3 %; Mean Corpuscular Hemoglobin 29.4 pg (25-34); Mean Corpuscular Hgb Conc 32.4 g/dL (32-36); Mean Corpuscular Volume 90.7 fL (80-100); Monocytes # (auto) 0.64 K/uL (0.11-0.59); Neutrophils # (auto) 8.02 K/uL (1.4-6.5); Neutrophils % (auto) 75.2 %; Platelet Count 315 K/uL (130-400); RDW Coefficient of Variation 14.5 % (11.5-14.5); RDW Standard Deviation 47.7 fL (36.4-46.3); Red Blood Count 4.29 M/uL (4.2-5.4); White Blood Count 10.66 K/uL (4.8-10.8)
[2021-05-05 07:28] LABS: BUN Creatinine Ratio 37.3 (10-20); Calcium 10.6 mg/dl (8.5-10.1); Creatinine Clr Calc Pharmacy 60.5 ml/min; Est GFR (Non-African American) 38.8 ml/min; Potassium 4.1 mmol/L (3.5-5.1)
[2021-05-05] MEDS: SPIRONOLACTONE 25 MG TAB PO SCH (09:17)
[2021-05-05] MEDS: allopurinoL 300 MG TAB PO SCH (09:18)
[2021-05-05] MEDS: FUROSEMIDE 40 MG TAB PO SCH (09:18)
[2021-05-05] MEDS: GABAPENTIN 100 MG CAP PO SCH ×2 (09:18→20:44)
[2021-05-05] MEDS: MAGNESIUM OXIDE 400 MG TAB PO SCH (09:19)
[2021-05-05] MEDS: ASPIRIN 81 MG ECTAB PO SCH (09:19)
[2021-05-05] MEDS: MULTIVITAMIN TAB PO SCH (09:19)
[2021-05-05] MEDS: DICLOFENAC SOD 1% GEL 100 GM TUBE EXT SCH ×4 (09:20→20:43)
[2021-05-05] MEDS: ENOXAPARIN 80 MG/0.8 ML SYR SQ SCH (09:20)
[2021-05-05] MEDS: TRIAMCINOLONE ACET 0.1% CR 15 GM TUBE TOP SCH ×2 (09:21→20:43)
--- NOTE | 2021-05-05 13:28 | Hospitalist Progress Note ---
Date of Service May 05, 2021 Assessment & Plan (1) Cellulitis of both lower extremities: Plan: - In the setting of chronic lymphedema. - Improved, transitioned to oral Levaquin 05/04/21. Limited options d/t multiple drug allergies including reported h/o anaphylaxis to PCN. - Levaquin will also provide coverage for her UTI (see below) (2) Urinary tract infection: Plan: - Urine culture growing pansensitive E. Coli. - Patient says that she was having urinary incontinence (unusual for her) prior to admission. - She says this had been going on since her hospitalization at [place] where she was catheterized - Will treat with Levaquin PO w/ renal adjustment (see above) (3) Lumbar facet arthropathy: Plan: - patient with severe back pain and RLE radicular pain along with left hip flexion weakness upon admission. - MRI lumbar spine with numerous findings/abnormalities which would explain her complaints. - When cellulitis is improved/resolved could consider a dexamethasone steroid course. - In meantime - pain meds, and start gabapentin 100mg BID for neuropathic/radicular pain. - Would refer to pain management post-d/c as the back issues are likely to persist. - VERY poor candidate for any surgical intervention thus defer on ortho consultation. - Continue therapy. Although patient would like to go home, she is not sure she could manage right now due to the pain in her back and legs. Is agreeable to short stay in rehab. (4) Chronic diastolic (congestive) heart failure: Plan: - Despite her LE edema she otherwise looked volume contracted at presentation - c/o thirst, creatinine high at 1.5 (baseline 1.1), dry MM, 100% sats in room air. - Echo this admission, however, could not really evaluate the right heart due to poor windows. - Renal function back to baseline and she was hypertensive on 05/04, subsequently diuretics resumed - This AM, creat bumped back up to 1.39 and Na down to 130, this is with a recorded net negative fluid balance - Will adjust her diuretic regimen as she does not appear grossly volume overloaded (5) COPD (chronic obstructive pulmonary disease): Plan: - without acute exacerbation (6) Hypertension: Plan: - unclear why pt is only on diuretics for her BP - would start on low dose BRANDYN/ARB and titrate (7) Acute kidney injury: Plan: - Creat continues to wax and wane in the setting of chronic diuretic use, creat baseline 1.1 - Serum sodium still low but this is chronic for her, but also note that this is in the setting of chronic diuretic use including Aldactone which is known to cause electrolyte, specifically Na imbalance - Will adjust diuretics and monitor kidney function (8) Hypothyroidism: Plan: - Continue levothyroxine 25 mcg daily - TSH is normal. (9) Morbid obesity: Plan: - BMI nearly 60 - Not surprised that she has back and leg problems as her stature is likely contributing to this issue - Strongly advise dietary changes and weight loss (10) Gout: Plan: - Continue allopurinol 300 mg daily for prophylaxis - She denies foot pain today - Appears provider seeing patient over the weekend started a tapering course of Prednisone - Will continue taper (11) Lymphedema: Plan: - TSH wnl. - No proteinuria. - No h/o liver disease but hasn't had dedicated imaging of liver in several years - at some point would investigate - at risk of CARVER. - Could have right sided CHF contributing to her chronic edema but echo here was limited. - Resumed diuretics 05/04 but doubt there has been significant change. - Dopplers of legs neg for DVT. most of her edema is truly lymphedema in the setting of severe morbid obesity. she does lymphedema wraps at home - resume after d/c. Plan: As mentioned, will adjust diuretics, decrease Spironolactone to 50mg daily, and Lasix to 60mg daily. Remove yoo. Add low dose Losartan 25mg daily for HTN. Taper Prednisone. Continue PT/OT services. Follow up BMP in AM. Case management for D/C planning. Pt agreeable to acute rehab and I do believe she would benefit. Admission and Anticipated Discharge Date Admission Date: April 30, 2021 Subjective Patient seen on rounds this morning. She is continues to c/o right leg pain (mainly outside of right knee) today. She otherwise has no complaints. Currently has a catheter in place. Told me that at one point she told therapy she didn't want to participate but admits she recognizes she will need to participate if she wants to improve and be discharged. She now seems agreeable to rehab following her hospital stay. Review of Systems Review of Systems: CONSTITUTIONAL: +morbidy obesity. Denies weight loss/gain, fever and chills, fatigue, malaise, generalized weakness. HEENT: Denies changes in vision and hearing. RESPIRATORY: Denies SOB, cough, wheezing. CV: Denies palpitations, CP, lower extremity edema, orthopnea, PND. GI: Denies abdominal pain, nausea, vomiting and diarrhea. : Denies dysuria and urinary frequency, urgency, hesitancy. MUSCULOSKELETAL: +RLE pain. SKIN: No rashes or lesions. NEUROLOGICAL: Denies headache, syncope, focal weakness, numbness, tingling. PSYCHIATRIC: Denies recent changes in mood. Denies anxiety and depression. Physical Exam Physical Exam: GENERAL: 70 yo morbidly obese WF. NAD. LUNGS: Clear to auscultation bilaterally. No accessory muscle use. No W/R/R. CARDIOVASCULAR: Regular rate and rhythm. No M/G/R. No JVD. ABDOMEN: Soft, non-tender and non-distended. Obese, BS normal x 4 quad. EXTREMITIES: Dependent edema. Peripheral pulses +2/4. NEUROLOGIC: A&O x3. PSYCHIATRIC: Cooperative. Appropriate mood and affect. SKIN: Warm, dry, intact. Chronic venous stasis skin changes appreciated distal b/l LE. Results & Data Results & Data ([facility]) Vital Signs (Past 12 Hours) Vital Signs Temp Pulse Resp BP Pulse Ox 05/05/21 07:20 36.7 C 71 16 138/75 99 Laboratory Results 05/05/21 06:42 05/05/21 06:42 Urine Culture Final 05/02/21-0953 Organism 1 Escherichia coli [place] Count >100,000 CFU/ml Sens Sensitivities to Follow E coli RX M.I.C. --- --------- Amox/Clav S <=8/4 Ampicillin S <=8 Amp/Sul S <=8/4 Cefazolin S <=2 Cefepime S <=2 Ceftriaxone S <=1 Ciprofloxacin S <=0.25 Ertapenem S <=0.5 Gentamicin S <=4 Levofloxacin S <=0.5 Meropenem S <=1 Nitrofurantoin S <=32 Tobramycin S <=4 Trimeth/Sulfa S <=2/38 Pip/Tazo S <=16 PG Care Time/CCT Total # of Minutes Spent Total Time Spent with Patient: Total time spent is greater than 50% in coordination of care (as documented) at patient's floor/unit and/or counseling patient: Coding Level of Care Code 26263 Subseq Hosp Care Lvl 3 Diagnoses Cellulitis of both lower extremities L03.115; L03.116 Urinary tract infection N39.0 Lumbar facet arthropathy M47.816 Chronic diastolic (congestive) heart failure I50.32 COPD (chronic obstructive pulmonary disease) J44.9 Hypertension I10 Acute kidney injury N17.9 Hypothyroidism E03.9 Morbid obesity E66.01 Gout M10.9 Lymphedema I89.0
[2021-05-05] MEDS: predniSONE 10 MG TABLET PO SCH (14:30)
[2021-05-05] MEDS: HYDROmorphone INJ 0.5 MG/0.5 ML SYR IV PRN (19:50)
[2021-05-05] MEDS: FUROSEMIDE 20 MG TAB PO SCH (20:43)
[2021-05-05] MEDS: LATANOPROST 0.005% OP SOLN 2.5 ML BTL OPB SCH (20:44)
[2021-05-05] MEDS: ACETAMINOPHEN 325 MG TAB PO PRN (23:15)
[2021-05-06] MEDS: LEVOTHYROXINE SODIUM 25 MCG TABLET PO SCH (06:04)
[2021-05-06] MEDS: HYDROmorphone INJ 0.5 MG/0.5 ML SYR IV PRN (08:01)
[2021-05-06] MEDS: GABAPENTIN 100 MG CAP PO SCH (08:05)
[2021-05-06] MEDS: FUROSEMIDE 40 MG TAB PO SCH (08:05)
[2021-05-06] MEDS: ASPIRIN 81 MG ECTAB PO SCH (08:05)
[2021-05-06] MEDS: SPIRONOLACTONE 25 MG TAB PO SCH (08:06)
[2021-05-06] MEDS: allopurinoL 300 MG TAB PO SCH (08:07)
[2021-05-06] MEDS: MULTIVITAMIN TAB PO SCH (08:07)
[2021-05-06] MEDS: LOSARTAN POTASSIUM 25 MG TAB PO SCH (08:08)
[2021-05-06] MEDS: MAGNESIUM OXIDE 400 MG TAB PO SCH (08:08)
[2021-05-06] MEDS: predniSONE 20 MG TAB PO SCH (08:09)
[2021-05-06] MEDS: DICLOFENAC SOD 1% GEL 100 GM TUBE EXT SCH ×4 (08:10→20:06)
[2021-05-06] MEDS: ENOXAPARIN 80 MG/0.8 ML SYR SQ SCH (08:10)
[2021-05-06 08:46] LABS: BUN Creatinine Ratio 45.5 (10-20); Calcium 10.5 mg/dl (8.5-10.1); Creatinine Clr Calc Pharmacy 64.7 ml/min; Est GFR (African American) 48.8 ml/min; Est GFR (Non-African American) 42.1 ml/min
--- NOTE | 2021-05-06 12:38 | Hospitalist Progress Note ---
Date of Service May 06, 2021 Assessment & Plan (1) Cellulitis of both lower extremities: Plan: - In the setting of chronic lymphedema. - Improved, transitioned to oral Levaquin 05/04/21. Limited options d/t multiple drug allergies including reported h/o anaphylaxis to PCN. - Levaquin will also provide coverage for her UTI (see below) - Plan for total of 10 days of antibiotics (2) Urinary tract infection: Plan: - Urine culture growing pansensitive E. Coli. - Patient says that she was having urinary incontinence (unusual for her) prior to admission. - She says this had been going on since her hospitalization at [facility] where she was catheterized - Will treat with Levaquin PO w/ renal adjustment (see above) (3) Lumbar facet arthropathy: Plan: - patient with severe back pain and RLE radicular pain along with left hip flexion weakness upon admission. - MRI lumbar spine with numerous findings/abnormalities which would explain her complaints. - In meantime - pain control, increase gabapentin to 300mg BID for neuropat hic/radicular pain. - Would refer to pain management post-d/c as the back issues are likely to persi st. - VERY poor candidate for any surgical intervention thus defer on ortho consultation. - Continue therapy. Although patient would like to go home, she is not sure she could manage right now due to the pain in her back and legs. Is agreeable to short stay in rehab. (4) Chronic diastolic (congestive) heart failure: Plan: - Despite her LE edema she otherwise looked volume contracted at presentation - c/o thirst, creatinine high at 1.5 (baseline 1.1), dry MM, 100% sats in room air. - Echo this admission, however, could not really evaluate the right heart due to poor windows. - Renal function back to baseline and she was hypertensive on 05/04, subsequently diuretics resumed - Adjusted her diuretic regimen on 05/05 as she did not appear grossly volume overloaded (5) COPD (chronic obstructive pulmonary disease): Plan: - without acute exacerbation (6) Hypertension: Plan: - unclear why pt is only on diuretics for her BP - would start on low dose BRANDYN/ARB and titrate - BP well controlled (7) Acute kidney injury: Plan: - Creat continues to wax and wane in the setting of chronic diuretic use, creat baseline 1.1 - Serum sodium still low but this is chronic for her, but also note that this is in the setting of chronic diuretic use including Aldactone which is known to cause electrolyte, specifically Na imbalance - Adjusted diuretics on 05/05, renal function improved as well as Na on 05/06 with these changes (8) Hypothyroidism: Plan: - Continue levothyroxine 25 mcg daily - TSH is normal. (9) Morbid obesity: Plan: - BMI nearly 60 - Not surprised that she has back and leg problems as her stature is likely contributing to this issue - Strongly advise dietary changes and weight loss (10) Gout: Plan: - Continue allopurinol 300 mg daily for prophylaxis - She denies foot pain today - Appears provider seeing patient over the weekend started a tapering course of Prednisone - Will continue taper (11) Lymphedema: Plan: - TSH wnl. - No proteinuria. - No h/o liver disease but hasn't had dedicated imaging of liver in several years - at some point would investigate - at risk of CARVER. - Could have right sided CHF contributing to her chronic edema but echo here was limited. - Resumed diuretics 05/04 but doubt there has been significant change. - Dopplers of legs neg for DVT. most of her edema is truly lymphedema in the setting of severe morbid obesity. she does lymphedema wraps at home - resume after d/c. Plan: Adjusted diuretics on 05/05 as follows: decreased Spironolactone to 50mg daily, and Lasix to 60mg (total) daily. Remove yoo as this was not done on 05/05 as ordered. Added low dose Losartan 25mg daily for HTN on 05/05. Continue tapering Prednisone. Continue PT/OT services. Follow up BMP in AM. Case management for D/C planning. Pt agreeable to acute rehab and I do believe she would benefit. She is medically stable for d/c when rehab bed available. Admission and Anticipated Discharge Date Admission Date: April 30, 2021 Subjective Patient seen on rounds this morning. She is continues to c/o low back pain with radiation down into her right leg. Currently has a catheter in place which was supposed to be removed yesterday. She was initially reluctant to go to rehab but now she is agreeable to short stay since she recognizes that she cannot perform ADLs independently. Review of Systems Review of Systems: CONSTITUTIONAL: +morbidy obesity. Denies weight loss/gain, fever and chills, fatigue, malaise, generalized weakness. HEENT: Denies changes in vision and hearing. RESPIRATORY: Denies SOB, cough, wheezing. CV: Denies palpitations, CP, lower extremity edema, orthopnea, PND. GI: Denies abdominal pain, nausea, vomiting and diarrhea. : Denies dysuria and urinary frequency, urgency, hesitancy. MUSCULOSKELETAL: +RLE pain. SKIN: No rashes or lesions. NEUROLOGICAL: Denies headache, syncope, focal weakness, numbness, tingling. PSYCHIATRIC: Denies recent changes in mood. Denies anxiety and depression. Physical Exam Physical Exam: GENERAL: 70 yo morbidly obese WF. NAD. LUNGS: Clear to auscultation bilaterally. No accessory muscle use. No W/R/R. CARDIOVASCULAR: Regular rate and rhythm. No M/G/R. No JVD. ABDOMEN: Soft, non-tender and non-distended. Obese, BS normal x 4 quad. EXTREMITIES: Dependent edema. Peripheral pulses +2/4. NEUROLOGIC: A&O x3. PSYCHIATRIC: Cooperative. Appropriate mood and affect. SKIN: Warm, dry, intact. Chronic venous stasis skin changes appreciated distal b/l LE. Results & Data Results & Data ([facility]) Vital Signs (Past 12 Hours) Vital Signs Temp Pulse Resp BP Pulse Ox 05/06/21 07:30 36.7 C 60 16 137/73 96 Laboratory Results 05/05/21 06:42 05/06/21 07:52 PG Care Time/CCT Total # of Minutes Spent Total Time Spent with Patient: Total time spent is greater than 50% in coordination of care (as documented) at patient's floor/unit and/or counseling patient: Coding Level of Care Code 20988 Subseq Hosp Care Lvl 2 Diagnoses Cellulitis of both lower extremities L03.115; L03.116 Urinary tract infection N39.0 Lumbar facet arthropathy M47.816 Chronic diastolic (congestive) heart failure I50.32 COPD (chronic obstructive pulmonary disease) J44.9 Hypertension I10 Acute kidney injury N17.9 Hypothyroidism E03.9 Morbid obesity E66.01 Gout M10.9 Lymphedema I89.0
[2021-05-06] MEDS: levoFLOXacin 750 MG TAB PO SCH (16:38)
[2021-05-06] MEDS: TRIAMCINOLONE ACET 0.1% CR 15 GM TUBE TOP SCH ×2 (16:39→20:06)
[2021-05-06] MEDS: FUROSEMIDE 20 MG TAB PO SCH (20:06)
[2021-05-06] MEDS: GABAPENTIN 300 MG CAP PO SCH (20:06)
[2021-05-06] MEDS: LATANOPROST 0.005% OP SOLN 2.5 ML BTL OPB SCH (20:07)
[2021-05-07] MEDS: LEVOTHYROXINE SODIUM 25 MCG TABLET PO SCH (06:16)
[2021-05-07 07:54] LABS: BUN Creatinine Ratio 50.3 (10-20); Calcium 10.2 mg/dl (8.5-10.1); Est GFR (African American) 40.1 ml/min; Est GFR (Non-African American) 34.6 ml/min; Potassium 4.2 mmol/L (3.5-5.1)
[2021-05-07] MEDS: predniSONE 20 MG TAB PO SCH (07:55)
[2021-05-07] MEDS: LOSARTAN POTASSIUM 25 MG TAB PO SCH (07:55)
[2021-05-07] MEDS: MULTIVITAMIN TAB PO SCH (07:55)
[2021-05-07] MEDS: SPIRONOLACTONE 25 MG TAB PO SCH (07:55)
[2021-05-07] MEDS: FUROSEMIDE 40 MG TAB PO SCH (07:56)
[2021-05-07] MEDS: MAGNESIUM OXIDE 400 MG TAB PO SCH (07:56)
[2021-05-07] MEDS: GABAPENTIN 300 MG CAP PO SCH (07:56)
[2021-05-07] MEDS: DICLOFENAC SOD 1% GEL 100 GM TUBE EXT SCH ×4 (07:56→20:31)
[2021-05-07] MEDS: ENOXAPARIN 80 MG/0.8 ML SYR SQ SCH (07:56)
[2021-05-07] MEDS: allopurinoL 300 MG TAB PO SCH (07:56)
[2021-05-07] MEDS: ASPIRIN 81 MG ECTAB PO SCH (07:56)
[2021-05-07] MEDS: TRIAMCINOLONE ACET 0.1% CR 15 GM TUBE TOP SCH ×2 (07:57→20:32)
[2021-05-07] MEDS: predniSONE 10 MG TABLET PO SCH (08:16)
--- NOTE | 2021-05-07 13:41 | Hospitalist Progress Note ---
Date of Service May 07, 2021 Assessment & Plan (1) Cellulitis of both lower extremities: Plan: - In the setting of chronic lymphedema. - Improved, transitioned to oral Levaquin 05/04/21. Limited options d/t multiple drug allergies including reported h/o anaphylaxis to PCN. - Levaquin will also provide coverage for her UTI (see below) - Plan for total of 10 days of antibiotics, today day #12/03 (2) Urinary tract infection: Plan: - Urine culture growing pansensitive E. Coli. - Patient says that she was having urinary incontinence (unusual for her) prior to admission. - She says this had been going on since her hospitalization at [facility] where she was catheterized - Will treat with Levaquin PO w/ renal adjustment (see above) (3) Lumbar facet arthropathy: Plan: - patient with severe back pain and RLE radicular pain along with left hip flexion weakness upon admission. - MRI lumbar spine with numerous findings/abnormalities which would explain her complaints. - In meantime - pain control, increase gabapentin to 300mg BID for neuropathic/radicular pain. - Would refer to pain management post-d/c as the back issues are likely to persist. - VERY poor candidate for any surgical intervention thus defer on ortho consult ation. - Continue therapy. Although patient would like to go home, at this time PT still recommending acute rehab prior to d/c home. Pt is on the fence. Auth submitted for [facility] and is pending. (4) Chronic diastolic (congestive) heart failure: Plan: - Despite her LE edema she otherwise looked volume contracted at presentation - c/o thirst, creatinine high at 1.5 (baseline 1.1), dry MM, 100% sats in room air. - Echo this admission, however, could not really evaluate the right heart due to poor windows. - Renal function back to baseline and she was hypertensive on 05/04, subsequently diuretics resumed - Adjusted diuretics on 05/05 as follows: decreased Spironolactone to 50mg daily, and Lasix to 60mg (total)=40mg in AM and 20mg in PM. (5) COPD (chronic obstructive pulmonary disease): Plan: - without acute exacerbation (6) Hypertension: Plan: - unclear why pt is only on diuretics for her BP - Started on Losartan 25mg daily on 05/05 - BP well controlled with that change (7) Acute kidney injury: Plan: - Creat continues to wax and wane in the setting of chronic diuretic use, creat baseline 1.1-1.2, today creat 1.5 - Serum sodium still low but this is chronic for her, but also note that this is in the setting of chronic diuretic use including Aldactone which is known to cause electrolyte, specifically Na imbalance - Adjusted diuretics on 05/05, renal function improved as well as Na on 05/06 with these changes but creat back up today - Hold diuretics for now and trend renal fxn (8) Hypothyroidism: Plan: - Continue levothyroxine 25 mcg daily - TSH is normal. (9) Morbid obesity: Plan: - BMI nearly 60 - Not surprised that she has back and leg problems as her stature is likely contributing to this issue - Strongly advise dietary changes and weight loss (10) Gout: Plan: - Continue allopurinol 300 mg daily for prophylaxis - She denies foot pain today - Appears provider seeing patient over the weekend started a tapering course of Prednisone - Will continue Prednisone taper (last dose 05/08) (11) Lymphedema: Plan: - TSH wnl. - No proteinuria. - No h/o liver disease but hasn't had dedicated imaging of liver in several years - at some point would investigate - at risk of CARVER. - Could have right sided CHF contributing to her chronic edema but echo here was limited. - Resumed diuretics 05/04 but doubt there has been significant change. - Dopplers of legs neg for DVT. most of her edema is truly lymphedema in the setting of severe morbid obesity. she does lymphedema wraps at home - resume after d/c. Plan: Hold diuretics due to uptrending creat. Continue tapering Prednisone. Continue PT/OT services. Follow up BMP in AM. Case management for D/C planning. Pt on the fence now about rehab and seems more motivated in order to facilitate going home. For now, auth submitted for [facility], can determine once outcome of auth received how pt would like to proceed with regards to her dispo. Admission and Anticipated Discharge Date Admission Date: April 30, 2021 Subjective Patient seen on rounds this morning. Today reports no significant issues other than wanting to go home and now today stating that she doesn't want to go to [facility] because she can't have visitors and that's "boring." She was agreeable to short rehab stay on rounds yesterday but her mind seems to be swayed since talking to someone from [facility] who told her she couldn't have visitors. Per PT note, pt more motivated today and has progressed, they are still recommending acute rehab following her hospitalization prior to returning home. Review of Systems Review of Systems: CONSTITUTIONAL: +morbidy obesity. Denies weight loss/gain, fever and chills, fatigue, malaise, generalized weakness. HEENT: Denies changes in vision and hearing. RESPIRATORY: Denies SOB, cough, wheezing. CV: Denies palpitations, CP, lower extremity edema, orthopnea, PND. GI: Denies abdominal pain, nausea, vomiting and diarrhea. : Denies dysuria and urinary frequency, urgency, hesitancy. MUSCULOSKELETAL: chronic low back pain. SKIN: No rashes or lesions. NEUROLOGICAL: Denies headache, syncope, focal weakness, numbness, tingling. PSYCHIATRIC: Denies recent changes in mood. Denies anxiety and depression. Physical Exam Physical Exam: GENERAL: 70 yo morbidly obese WF. NAD. LUNGS: Clear to auscultation bilaterally. No accessory muscle use. No W/R/R. CARDIOVASCULAR: Regular rate and rhythm. No M/G/R. No JVD. ABDOMEN: Soft, non-tender and non-distended. Obese, BS normal x 4 quad. EXTREMITIES: Dependent edema. Peripheral pulses +2/4. NEUROLOGIC: A&O x3. PSYCHIATRIC: Cooperative. Appropriate mood and affect. SKIN: Warm, dry, intact. Chronic venous stasis skin changes appreciated distal b/l LE. Results & Data Results & Data ([facility]) Vital Signs (Past 12 Hours) Vital Signs Temp Pulse Resp BP Pulse Ox 05/07/21 07:33 36.8 C 64 16 134/74 98 Laboratory Results 05/05/21 06:42 05/07/21 06:31 PG Care Time/CCT Total # of Minutes Spent Total Time Spent with Patient: Total time spent is greater than 50% in coordination of care (as documented) at patient's floor/unit and/or counseling patient: Coding Level of Care Code 28907 Subseq Hosp Care Lvl 2 Diagnoses Cellulitis of both lower extremities L03.115; L03.116 Urinary tract infection N39.0 Lumbar facet arthropathy M47.816 Chronic diastolic (congestive) heart failure I50.32 COPD (chronic obstructive pulmonary disease) J44.9 Hypertension I10 Acute kidney injury N17.9 Hypothyroidism E03.9 Morbid obesity E66.01 Gout M10.9 Lymphedema I89.0
[2021-05-07] MEDS ORDERED: levoFLOXacin 750 MG TAB PO SCH (14:00)
[2021-05-07] MEDS: LATANOPROST 0.005% OP SOLN 2.5 ML BTL OPB SCH (20:31)
[2021-05-08] MEDS: LEVOTHYROXINE SODIUM 25 MCG TABLET PO SCH (06:07)
[2021-05-08 07:33] LABS: BUN Creatinine Ratio 48.4 (10-20); Creatinine Clr Calc Pharmacy 45.2 ml/min; Est GFR (African American) 31.7 ml/min; Est GFR (Non-African American) 27.3 ml/min; Potassium 4.4 mmol/L (3.5-5.1)
[2021-05-08] MEDS: predniSONE 10 MG TABLET PO SCH (07:58)
[2021-05-08] MEDS: LOSARTAN POTASSIUM 25 MG TAB PO SCH (07:59)
[2021-05-08] MEDS: ASPIRIN 81 MG ECTAB PO SCH (07:59)
[2021-05-08] MEDS: MAGNESIUM OXIDE 400 MG TAB PO SCH (07:59)
[2021-05-08] MEDS: allopurinoL 300 MG TAB PO SCH (07:59)
[2021-05-08] MEDS: TRIAMCINOLONE ACET 0.1% CR 15 GM TUBE TOP SCH ×2 (08:00→20:15)
[2021-05-08] MEDS: MULTIVITAMIN TAB PO SCH (08:00)
[2021-05-08] MEDS: ENOXAPARIN 80 MG/0.8 ML SYR SQ SCH (08:00)
[2021-05-08] MEDS: DICLOFENAC SOD 1% GEL 100 GM TUBE EXT SCH ×4 (08:01→20:15)
[2021-05-08] MEDS: SODIUM CHLORIDE 0.9% 1000ML 1,000 ML IV SCH ×2 (09:22→18:01)
[2021-05-08] MEDS: FAMOTIDINE 20 MG TAB PO SCH (12:42)
[2021-05-08] MEDS: ACETAMINOPHEN 325 MG TAB PO PRN (15:42)
--- NOTE | 2021-05-08 15:45 | Hospitalist Progress Note ---
Date of Service May 08, 2021 Assessment & Plan (1) Cellulitis of both lower extremities: Plan: - In the setting of chronic lymphedema. - Improved, transitioned to oral Levaquin 05/04/21. Limited options d/t multiple drug allergies including reported h/o anaphylaxis to PCN. - Levaquin will also provide coverage for her UTI (see below) - Plan for total of 10 days of antibiotics, today day #01/03 (2) Urinary tract infection: Plan: - Urine culture growing pansensitive E. Coli. - Patient says that she was having urinary incontinence (unusual for her) prior to admission. - She says this had been going on since her hospitalization at [facility] where she was catheterized - Will treat with Levaquin PO w/ renal adjustment (see above) (3) Acute kidney injury: Plan: - Creat continues to wax and wane in the setting of chronic diuretic use, creat baseline 1.1-1.2, today creat 1.89 - Serum sodium still low but this is chronic for her, but also note that this is in the setting of chronic diuretic use including Aldactone which is known to cause electrolyte, specifically Na imbalance - Adjusted diuretics on 05/05, renal function improved as well as Na on 05/06 with these changes but creat continues to uptrend - Continue holding diuretics - Gentle IVF hydration with NSS and repeat labs this afternoon and again in AM (4) Lumbar facet arthropathy: Plan: - patient with severe back pain and RLE radicular pain along with left hip flexion weakness upon admission. - MRI lumbar spine with numerous findings/abnormalities which would explain her complaints. - In meantime - pain control, increase gabapentin to 300mg BID for neuropathic/radicular pain. - Would refer to pain management post-d/c as the back issues are likely to persist. - VERY poor candidate for any surgical intervention thus defer on ortho consultation. - Continue therapy. Although patient would like to go home, at this time PT still recommending acute rehab prior to d/c home. Pt is on the fence. Auth submitted for [facility] and is pending. (5) Chronic diastolic (congestive) heart failure: Plan: - Despite her LE edema she otherwise looked volume contracted at presentation - c/o thirst, creatinine high at 1.5 (baseline 1.1), dry MM, 100% sats in room air. - Echo this admission, however, could not really evaluate the right heart due to poor windows. - Renal function back to baseline and she was hypertensive on 05/04, subsequently diuretics resumed - Adjusted diuretics on 05/05 as follows: decreased Spironolactone to 50mg daily, and Lasix to 60mg (total)=40mg in AM and 20mg in PM. (6) COPD (chronic obstructive pulmonary disease): Plan: - without acute exacerbation (7) Hypertension: Plan: - unclear why pt is only on diuretics for her BP - Started on Losartan 25mg daily on 05/05 - BP well controlled with that change (8) Hypothyroidism: Plan: - Continue levothyroxine 25 mcg daily - TSH is normal. (9) Morbid obesity: Plan: - BMI nearly 60 - Not surprised that she has back and leg problems as her stature is likely contributing to this issue - Strongly advise dietary changes and weight loss (10) Gout: Plan: - Continue allopurinol 300 mg daily for prophylaxis - She denies foot pain today - Completed a course of tapering Prednisone (11) Lymphedema: Plan: - TSH wnl. - No proteinuria. - No h/o liver disease but hasn't had dedicated imaging of liver in several years - at some point would investigate - at risk of CARVER. - Could have right sided CHF contributing to her chronic edema but echo here was limited. - Resumed diuretics 05/04 but doubt there has been significant change. - Dopplers of legs neg for DVT. most of her edema is truly lymphedema in the setting of severe morbid obesity. she does lymphedema wraps at home - resume after d/c. Plan: Hold diuretics due to uptrending creat. Continue PT/OT services. Follow up BMP in AM. Case management for D/C planning. Pt on the fence now about rehab and seems more motivated in order to facilitate going home. For now, auth submitted for [facility], can determine once outcome of auth received how pt would like to proceed with regards to her dispo. Admission and Anticipated Discharge Date Admission Date: April 30, 2021 Subjective Patient seen on rounds this morning. Seems more receptive to short stay in rehab after our talk yesterday. Currently in bed, reports no pain in her back, just seems to be in her right knee/leg today. Denies cp, dyspnea, cough, n/v/d, f/c, headache, or gu symptoms. Was motivated working with PT yesterday. Did not have PT today. Still haven't heard back on insurance auth approval for [facility]. Review of Systems Review of Systems: CONSTITUTIONAL: +morbidy obesity. Denies weight loss/gain, fever and chills, fatigue, malaise, generalized weakness. HEENT: Denies changes in vision and hearing. RESPIRATORY: Denies SOB, cough, wheezing. CV: Denies palpitations, CP, lower extremity edema, orthopnea, PND. GI: Denies abdominal pain, nausea, vomiting and diarrhea. : Denies dysuria and urinary frequency, urgency, hesitancy. MUSCULOSKELETAL: chronic low back pain. SKIN: No rashes or lesions. NEUROLOGICAL: Denies headache, syncope, focal weakness, numbness, tingling. PSYCHIATRIC: Denies recent changes in mood. Denies anxiety and depression. Physical Exam Physical Exam: GENERAL: 70 yo morbidly obese WF. NAD. LUNGS: Clear to auscultation bilaterally. No accessory muscle use. No W/R/R. CARDIOVASCULAR: Regular rate and rhythm. No M/G/R. No JVD. ABDOMEN: Soft, non-tender and non-distended. Obese, BS normal x 4 quad. EXTREMITIES: Dependent edema. Peripheral pulses +2/4. NEUROLOGIC: A&O x3. PSYCHIATRIC: Cooperative. Appropriate mood and affect. SKIN: Warm, dry, intact. Chronic venous stasis skin changes appreciated distal b/l LE. Results & Data Results & Data ([facility]) Vital Signs (Past 12 Hours) Vital Signs Temp Pulse Resp BP Pulse Ox 05/08/21 15:36 36.9 C 67 18 111/61 95 05/08/21 08:42 36.7 C 68 18 108/62 95 Laboratory Results Cl=104 Creat=1.86 BUN=90 PG Care Time/CCT Total # of Minutes Spent Total Time Spent with Patient: Total time spent is greater than 50% in coordination of care (as documented) at patient's floor/unit and/or counseling patient: Coding Level of Care Code 67379 Subseq Hosp Care Lvl 2 Diagnoses Cellulitis of both lower extremities L03.115; L03.116 Urinary tract infection N39.0 Lumbar facet arthropathy M47.816 Chronic diastolic (congestive) heart failure I50.32 COPD (chronic obstructive pulmonary disease) J44.9 Hypertension I10 Acute kidney injury N17.9 Hypothyroidism E03.9 Morbid obesity E66.01 Gout M10.9 Lymphedema I89.0
[2021-05-08 16:34] LABS: Potassium 5.6 mmol/L (3.5-5.1)
[2021-05-08 17:05] LABS: BUN Creatinine Ratio 45.7 (10-20); Calcium 9.2 mg/dl (8.5-10.1); Creatinine Clr Calc Pharmacy 40.4 ml/min; Est GFR (African American) 27.7 ml/min; Est GFR (Non-African American) 23.9 ml/min
[2021-05-08] MEDS ORDERED: PATIROMER CALCIUM SORBITEX 8.4 GM PACK PO ONE (17:10)
[2021-05-08] MEDS: LATANOPROST 0.005% OP SOLN 2.5 ML BTL OPB SCH (20:15)
[2021-05-09] MEDS: SODIUM CHLORIDE 0.9% 1000ML 1,000 ML IV SCH ×2 (05:20→15:22)
[2021-05-09] MEDS: LEVOTHYROXINE SODIUM 25 MCG TABLET PO SCH (05:21)
[2021-05-09] MEDS: ASPIRIN 81 MG ECTAB PO SCH (07:45)
[2021-05-09] MEDS: FAMOTIDINE 20 MG TAB PO SCH (07:45)
[2021-05-09] MEDS: ENOXAPARIN 80 MG/0.8 ML SYR SQ SCH (07:46)
[2021-05-09] MEDS: MULTIVITAMIN TAB PO SCH (07:46)
[2021-05-09] MEDS: TRIAMCINOLONE ACET 0.1% CR 15 GM TUBE TOP SCH ×2 (07:46→20:49)
[2021-05-09] MEDS: MAGNESIUM OXIDE 400 MG TAB PO SCH (07:46)
[2021-05-09] MEDS: allopurinoL 300 MG TAB PO SCH (07:47)
[2021-05-09] MEDS: DICLOFENAC SOD 1% GEL 100 GM TUBE EXT SCH ×4 (07:47→20:48)
[2021-05-09 09:14] LABS: Calcium 9.3 mg/dl (8.5-10.1); Creatinine Clr Calc Pharmacy 51.3 ml/min; Est GFR (African American) 36.9 ml/min; Est GFR (Non-African American) 31.8 ml/min; Potassium 4.4 mmol/L (3.5-5.1)
--- NOTE | 2021-05-09 10:17 | Nephrology Consultation ---
Date of Consultation May 09, 2021 Assessment & Plan (1) Acute kidney injury: (2) Hyponatremia: (3) Urinary tract infection: (4) Hyperkalemia: (5) Hypertension: (6) LVH (left ventricular hypertrophy): (7) Morbid obesity: 70-year-old female with a stage IIIA CKD, baseline creatinine 1.2-1.3, admitted to the hospital with UTI and right lower back pain. developed JAZZY, hyperkalemia and multiple electrolyte abnormality. Has been having decent urine output with net negative with 2 diuretics and recent introduction of ARB. Overall she is net negative. Renal function has been progressively worsening over last few days. Currently diuretics and ARB on hold. Renal function slightly improved this morning to creatinine 1.8, sodium improved to 133 and hyperkalemia resolved. Acute kidney injury and electrolyte abnormality seems to be secondary to volume depletion, unlikely AIN although she has been on antibiotic. -- continue on IV normal saline at 100 mL/hour, encourage increased p.o. intake. Continue to hold BRANDYN-inhibitor and ARB for now. Since potassium improved, if renal function stabilizes and blood pressure stable okay to resume on low-dose ARB, continue to hold diuretics. -- monitor intake and output, renal function and electrolyte daily. No other workup indicated at this time will follow Thank you for allowing me to participate in your patient's care. It was a pleasure to see Dina History of Present Illness Reason for Consultation: acute kidney injury Attending Physician: Rob Jimenez History of Present Illness Ms. Natali Smith is a 70-year-old female with PMH of stage 3A CKD b/l cr 1.2 to 1.3, morbid obesity, diastolic CHF admitted to hospital with right lower back pain, UTI and ambulatory dysfunction with potential need for long-term care facility/ rehab placement. nephrology consult was requested for management of AK I. EMR records are reviewed in detail during patient's visit. Natali presented to ER on 04/30/21 with a chief complaint of right lower back pain that radiates down her right leg that she experienced acutely. She was recently admitted to [facility] with pneumonia and CHF and after discharge she was having difficulty ambulating herself and she felt she needed to be at a long-term care facility. Imaging was unremarkable for any acute fracture or dislocation. urinalysis with no proteinuria or hematuria, had 4+ bacteria, culture grew E coli. creatinine on admission was 1.5 which have progressively worsened to 2.1. She also has been having hyponatremia with serum sodium around 130-132 since admission, with high urine osmolality>500. At home she was on Lasix and spironolactone which was continued during hospitalization. Three days ago she was started on losartan 25 mg daily. Lab yesterday showed hyperkalemia, potassium was 5.6 and creatinine was 2.1. All diuretics and losartan was stopped. Past medical history significant for stage III A CKD, baseline creatinine 1.2- 1.3. She reports history of nephrolithiasis Several years ago requiring hospitalization when her kidney shutdown however did not require dialysis. nonsmoker. No known family history of CKD or ESRD. She lives alone but has friends lives close by who can help her. Has hypertension and chronic diastolic dysfunction, has been on Lasix 20 mg and spironolactone at home. Has morbid obesity with BMI more than 40. recent 2D echo showed normal EF with LVH. She denied shortness of breath. No fever or chills. Has been having shaking while she was sitting. Allergies Allergy/AdvReac Type Severity Reaction Status Date / Time penicillin V [From Pen-Vee K] Allergy Severe "Stopped Verified 04/30/21 01:55 breathing" albuterol Allergy Unknown Unknown Verified 04/30/21 01:55 codeine Allergy Unknown Unknown Verified 04/30/21 01:55 hydrocodone Allergy Unknown Unknown Verified 04/30/21 07:47 Sulfa (Sulfonamide Allergy Unknown Unknown Verified 04/30/21 01:55 Antibiotics) Home Medications Medication Instructions Recorded Confirmed Type acetaminophen 650 mg 1,300 mg PO BID 11/23/18 04/30/21 History tablet,extended release latanoprost 0.005 % eye drops 1 drops OPB HS 11/23/18 04/30/21 History multivitamin (Daily Multi-Vitamin) 1 tab PO QAM 11/23/18 04/30/21 History apple cider vinegar 500 mg tablet 500 mg PO BID #180 tab 10/04/20 04/30/21 Rx allopurinol 300 mg tablet 300 mg PO DAILY #90 tab 12/06/20 04/30/21 Rx furosemide 40 mg tablet 40 mg PO BID #180 tab 12/06/20 04/30/21 Rx levothyroxine 25 mcg tablet 25 mcg PO DAILY #90 tab 12/06/20 04/30/21 Rx magnesium oxide 400 mg (241.3 mg 400 mg PO QAM #90 tab 12/06/20 04/30/21 Rx magnesium) tablet spironolactone 50 mg tablet 50 mg PO BID #180 tab 12/06/20 04/30/21 Rx acetaminophen 500 mg tablet 1,000 mg PO BID PRN 04/30/21 04/30/21 History (Tylenol Extra Strength) aspirin 81 mg chewable tablet 81 mg PO DAILY 04/30/21 04/30/21 History metolazone 5 mg tablet 5 mg PO DAILY 04/30/21 04/30/21 History triamcinolone acetonide 0.1 % 1 applic TOPICAL BID 04/30/21 04/30/21 History topical cream Patient History Medical History (Updated 05/09/21 @ 10:28 by Josephine Goldstein MD) Allergic rhinitis Arthritis Asthma Chronic diastolic (congestive) heart failure COPD (chronic obstructive pulmonary disease) Endometrium, polyp Glaucoma Gout History of herpes zoster History of pneumonia Hyperkalemia Hypertension Hyponatremia Hypothyroidism Lumbar facet arthropathy LVH (left ventricular hypertrophy) Lymphedema Morbid obesity Prediabetes Vitamin B 12 deficiency Surgical History History of ankle surgery post fracture History of cholecystectomy Hx of tubal ligation S/P tonsillectomy Status post hysteroscopic polypectomy age 68 Family History Mother Alcohol abuse Father Diabetes Hypertension Denies family history of Colon cancer Ovarian cancer Prostate cancer Myocardial infarction Breast cancer Social History Smoking Status: Never smoker Tobacco Type: Smokeless Tobacco (Dip or Chew) Age Started Using Tobacco: 27; Second Hand Exposure: No; Hx Alcohol Use: No Hx Substance Use: No Preferred Language: Occitan Communication Ability: Effective Visual Impairment: Limited Hearing Ability: Normal English Division Chair Required: No Beliefs That Will Affect Care: None marital status: / Current Living Situation: Alone current occupational status: retired How many Children do You have: 2 Feels Safe at Home: Yes Childhood Exposure to Second-Hand Smoke: Yes caffeine: No during the past year weight has: remained stable Dental Care, Regularly: Yes Physical Activity Frequency: Does not Exercise Seatbelt Use: always Sunscreen Use: No (patient does not go in the sun) Assistive Devices: Walker Review of Systems Review of Systems: Detailed review of system was done and pertinent positives and negatives mentioned in HPI. The Results & Data ([facility]) Vital Signs (Past 12 Hours) Vital Signs Temp Pulse Resp BP Pulse Ox 05/09/21 07:13 36.4 C L 80 17 124/58 L 100 05/08/21 22:34 36.6 C 92 H 19 109/66 95 PG Care Time/CCT Total # of Minutes Spent Total Time Spent with Patient: Total time spent is greater than 50% in coordination of care (as documented) at patient's floor/unit and/or counseling patient: Coding Level of Care Code 34810 Initial Inpt Care Lvl 3 Diagnoses Acute kidney injury N17.9 Hyponatremia E87.1 Urinary tract infection N39.0 Hyperkalemia E87.5 Hypertension I10 LVH (left ventricular hypertrophy) I51.7 Morbid obesity E66.01
[2021-05-09] MEDS ORDERED: levoFLOXacin 750 MG TAB PO SCH (11:00)
--- NOTE | 2021-05-09 11:49 | Hospitalist Progress Note ---
Date of Service May 09, 2021 Assessment & Plan (1) Cellulitis of both lower extremities: Plan: - In the setting of chronic lymphedema. - Improved, transitioned to oral Levaquin 05/04/21. Limited options d/t multiple drug allergies including reported h/o anaphylaxis to PCN. - Levaquin will also provide coverage for her UTI (see below) - Plan for total of 10 days of antibiotics, today day #02/02, can d/c Levaquin (2) Urinary tract infection: Plan: - Urine culture growing pansensitive E. Coli. - Patient says that she was having urinary incontinence (unusual for her) prior to admission. - She says this had been going on since her hospitalization at [place] where she was catheterized - Will treat with Levaquin PO w/ renal adjustment (see above) (3) Acute kidney injury: Plan: - Creat continues to wax and wane in the setting of chronic diuretic use, creat baseline ~1.2 - Serum sodium still low but this is chronic for her, but also note that this is in the setting of chronic diuretic use including Aldactone which is known to cause electrolyte, specifically Na imbalance - Adjusted diuretics on 05/05, renal function improved as well as Na on 05/06 with these changes but creat continues to uptrend - Continue holding diuretics - Continue gentle IVF hydration with NSS - Hold Losartan - Consulted nephrology who agrees with my plan, no further recommendations, appreciate assistance - Repeat labs in AM (4) Lumbar facet arthropathy: Plan: - patient with severe back pain and RLE radicular pain along with left hip flexion weakness upon admission. - MRI lumbar spine with numerous findings/abnormalities which would explain her complaints. - In meantime - pain control, increase gabapentin to 300mg BID for neuropathic/radicular pain. - Would refer to pain management post-d/c as the back issues are likely to persist. - VERY poor candidate for any surgical intervention thus defer on ortho consultation. - Continue therapy. Although patient would like to go home, at this time PT still recommending acute rehab prior to d/c home. Auth submitted for [facility] and is pending. (5) Chronic diastolic (congestive) heart failure: Plan: - Despite her LE edema she otherwise looked volume contracted at presentation - c/o thirst, creatinine high at 1.5 (baseline 1.1), dry MM, 100% sats in room air. - Echo this admission, however, could not really evaluate the right heart due to poor windows. - Renal function back to baseline and she was hypertensive on 05/04, subsequently diuretics resumed - Adjusted diuretics on 05/05 as follows: decreased Spironolactone to 50mg daily, and Lasix to 60mg (total)=40mg in AM and 20mg in PM. - Diuretics currently on hold as noted above (6) COPD (chronic obstructive pulmonary disease): Plan: - without acute exacerbation (7) Hypertension: Plan: - unclear why pt is only on diuretics for her BP - Started on Losartan 25mg daily on 05/05 - BP well controlled with that change; however, is currently being held in sett ing of JAZZY (8) Hypothyroidism: Plan: - Continue levothyroxine 25 mcg daily - TSH is normal. (9) Morbid obesity: Plan: - BMI nearly 60 - Not surprised that she has back and leg problems as her stature is likely contributing to this issue - Strongly advise dietary changes and weight loss (10) Gout: Plan: - Continue allopurinol 300 mg daily for prophylaxis - She denies foot pain today - Completed a course of tapering Prednisone (11) Lymphedema: Plan: - TSH wnl. - No proteinuria. - No h/o liver disease but hasn't had dedicated imaging of liver in several years - at some point would investigate - at risk of CARVER. - Could have right sided CHF contributing to her chronic edema but echo here was limited. - Resumed diuretics 05/04 but doubt there has been significant change. - Dopplers of legs neg for DVT. most of her edema is truly lymphedema in the setting of severe morbid obesity. she does lymphedema wraps at home - resume after d/c. Plan: Hold diuretics and continue IVF due to JAZZY. Continue PT/OT services. Follow up BMP in AM. Case management for D/C planning, auth still pending for [facility]. Back up SNF is [facility]. Admission and Anticipated Discharge Date Admission Date: April 30, 2021 Subjective Patient seen on rounds this morning. Denies cp, dyspnea, cough, n/v/d, f/c, headache, or gu symptoms. Per RN, pt unable to ambulate to restroom this morning. She does have a bedside commode available. Told her nurse that she needed help getting her leg into the bed. Pt back to being agreeable to rehab, recognizing that she cannot care for herself at home. She reports feeling cold this morning and having right hip pain. Review of Systems Review of Systems: CONSTITUTIONAL: +morbidy obesity. Denies weight loss/gain, fever and chills, fatigue, malaise, generalized weakness. HEENT: Denies changes in vision and hearing. RESPIRATORY: Denies SOB, cough, wheezing. CV: Denies palpitations, CP, lower extremity edema, orthopnea, PND. GI: Denies abdominal pain, nausea, vomiting and diarrhea. : Denies dysuria and urinary frequency, urgency, hesitancy. MUSCULOSKELETAL: chronic low back pain and right hip pain. SKIN: No rashes or lesions. NEUROLOGICAL: Denies headache, syncope, focal weakness, numbness, tingling. PSYCHIATRIC: Denies recent changes in mood. Denies anxiety and depression. Physical Exam Physical Exam: GENERAL: 70 yo morbidly obese WF. NAD. LUNGS: Clear to auscultation bilaterally. No accessory muscle use. No W/R/R. CARDIOVASCULAR: Regular rate and rhythm. No M/G/R. No JVD. ABDOMEN: Soft, non-tender and non-distended. Obese, BS normal x 4 quad. EXTREMITIES: Dependent edema. Peripheral pulses +2/4. NEUROLOGIC: A&O x3. PSYCHIATRIC: Cooperative. Appropriate mood and affect. SKIN: Warm, dry, intact. Chronic venous stasis skin changes appreciated distal b/l LE. Results & Data Results & Data ([facility]) Vital Signs (Past 12 Hours) Vital Signs Temp Pulse Resp BP Pulse Ox 05/09/21 07:13 36.4 C L 80 17 124/58 L 100 Laboratory Results 05/05/21 06:42 05/09/21 07:43 PG Care Time/CCT Total # of Minutes Spent Total Time Spent with Patient: Total time spent is greater than 50% in coordination of care (as documented) at patient's floor/unit and/or counseling patient: Coding Level of Care Code 15728 Subseq Hosp Care Lvl 2 Diagnoses Cellulitis of both lower extremities L03.115; L03.116 Urinary tract infection N39.0 Acute kidney injury N17.9 Lumbar facet arthropathy M47.816 Chronic diastolic (congestive) heart failure I50.32 COPD (chronic obstructive pulmonary disease) J44.9 Hypertension I10 Hypothyroidism E03.9 Morbid obesity E66.01 Gout M10.9 Lymphedema I89.0
[2021-05-09] MEDS: ACETAMINOPHEN 325 MG TAB PO PRN ×2 (15:22→20:47)
[2021-05-09] MEDS: LATANOPROST 0.005% OP SOLN 2.5 ML BTL OPB SCH (20:49)
[2021-05-10] MEDS: SODIUM CHLORIDE 0.9% 1000ML 1,000 ML IV SCH ×2 (01:32→11:17)
[2021-05-10] MEDS: LEVOTHYROXINE SODIUM 25 MCG TABLET PO SCH (06:16)
[2021-05-10] MEDS: FAMOTIDINE 20 MG TAB PO SCH (08:35)
[2021-05-10] MEDS: DICLOFENAC SOD 1% GEL 100 GM TUBE EXT SCH ×2 (08:35→12:45)
[2021-05-10] MEDS: ENOXAPARIN 80 MG/0.8 ML SYR SQ SCH ×2 (08:35→08:37)
[2021-05-10] MEDS: MULTIVITAMIN TAB PO SCH (08:35)
[2021-05-10] MEDS: ASPIRIN 81 MG ECTAB PO SCH (08:35)
[2021-05-10] MEDS: allopurinoL 300 MG TAB PO SCH (08:35)
[2021-05-10] MEDS: MAGNESIUM OXIDE 400 MG TAB PO SCH (08:35)
[2021-05-10] MEDS: TRIAMCINOLONE ACET 0.1% CR 15 GM TUBE TOP SCH (08:36)
[2021-05-10] MEDS: ACETAMINOPHEN 325 MG TAB PO PRN (10:30)
--- NOTE | 2021-05-10 10:48 | Nephrology Progress Note ---
Date of Service May 10, 2021 Assessment & Plan (1) Acute kidney injury: (2) Hyponatremia: (3) Urinary tract infection: (4) Hyperkalemia: (5) Hypertension: (6) LVH (left ventricular hypertrophy): (7) Morbid obesity: Plan: 70-year-old female with a stage IIIA CKD, baseline creatinine 1.2-1.3, admitted to the hospital with UTI and right lower back pain. Dina developed JAZZY, hyperkalemia, and multiple electrolyte abnormality. JAZZY hemodynamically mediated. ARB has been held and IVF provided. Labs pending today. IV saline will be stopped after current infusion complete. Overall, clinically improving. Medications appropriately dosed for kidney dysfunction. Admission and Anticipated Discharge Date Admission Date: April 30, 2021 Subjective No acute events overnight. No complaints this AM. IVF infusing. Appetite is good. Back pain improved. Unfortunately due to difficulty with venipuncture, no labs yet today. Review of Systems Review of Systems: All systems reviewed & are unremarkable except as noted in HPI & below Physical Exam Constitutional: well developed; no acute distress Eyes: no scleral abnormality and no corneal abnormality ENMT: Mouth: no oral mucosal abnormality and oral mucous membranes not dry Neck: normal visual inspection and trachea midline Respiratory: normal respiratory effort Auscultation: lungs clear to auscultation bilaterally Cardiovascular: Rate/Rhythm: regular rate Heart Sounds: normal S1 and normal S2 Extremities: no edema Musculoskeletal: Extremities: no cyanosis and no clubbing Skin: normal turgor; no lesions Neurologic: Motor/Sensory: no tremor and no asterixis Psychiatric: Orientation: alert and oriented x 3 Results & Data ([facility]) Vital Signs (Past 12 Hours) Vital Signs Temp Pulse Resp BP Pulse Ox 05/10/21 07:28 36.5 C 70 18 127/68 99 PG Care Time/CCT Total # of Minutes Spent Total Time Spent with Patient: Total time spent is greater than 50% in coordination of care (as documented) at patient's floor/unit and/or counseling patient: Coding Level of Care Code 80528 Subseq Hosp Care Lvl 3 Diagnoses Acute kidney injury N17.9 Hyponatremia E87.1 Urinary tract infection N39.0 Hyperkalemia E87.5 Hypertension I10 LVH (left ventricular hypertrophy) I51.7 Morbid obesity E66.01
[2021-05-10 11:36] LABS: Albumin Level 3.4 gm/dl (3.4-5.0); BUN Creatinine Ratio 40.8 (10-20); Calcium 9.6 mg/dl (8.5-10.1); Creatinine Clr Calc Pharmacy 81.6 ml/min; Est GFR (African American) 64.7 ml/min; Est GFR (Non-African American) 55.8 ml/min; Potassium 4.5 mmol/L (3.5-5.1)
--- NOTE | 2021-05-10 16:26 | Discharge Summary ---
Date of Service May 10, 2021 Admission HPI Per Admitting Provider The patient is a 70-year-old female with past medical history including lymphedema, lumbar facet arthropathy, asthma, chronic diastolic heart failure, COPD, gout, hypertension, hypothyroidism, LVH, morbid obesity and prediabetes. She was most recently admitted to [facility] for which she reports was a stay for pneumonia and CHF. However, upon questioning, she reports that she did not feel any difference in her breathing post admission compared to preadmission. She is chronically had issues with ambulation, and uses a walker at home. She reports that she is not able to get to the bathroom, and periodic ally urinates on herself. She reports that when she was going from sitting to standing or in the day today she felt a pop in her lower back and developed a more acute pain in her right leg. She does report discomfort and pain with bilateral lower extremities, and when asked about apparent redness, she notes that she has had that for a little while. Principal Diagnosis 1. Cellulitis of the Lower extremities- completed full course of abx 2. UTI- completed full course of abx 3. Debility- accepted at [facility] (was able to go there today but she now is refusing) 4. JAZZY- likely medication induced/volume depletion 5. Lumbago/chronic low back pain-- likely related to habitus Discharge Data Allergies Allergy/AdvReac Type Severity Reaction Status Date / Time penicillin V [From Pen-Vee K] Allergy Severe "Stopped Verified 04/30/21 01:55 breathing" albuterol Allergy Unknown Unknown Verified 04/30/21 01:55 codeine Allergy Unknown Unknown Verified 04/30/21 01:55 hydrocodone Allergy Unknown Unknown Verified 04/30/21 07:47 Sulfa (Sulfonamide Allergy Unknown Unknown Verified 04/30/21 01:55 Antibiotics) Consultations 04/30/21 05:19 ED Decision to Admit Stat 05/08/21 17:09 Consult Nephrology Routine Ordered Studies 04/30/21 01:06 CT lumbar spine wo con Urgent IMPRESSION: No evidence of acute fracture or traumatic subluxation. 04/30/21 03:26 US venous doppler LE BI Urgent IMPRESSION: No DVT within the right or left lower extremity. 04/30/21 12:46 MR lumbar spine wo con Routine MR lumbar spine wo con CLINICAL HISTORY: 70 years-old Female with suspected severe spinal stenosis. Chronic low back pain with radiation into the lower legs. COMPARISON: CT lumbar spine 04/30/2021 TECHNIQUE: Multiplanar, multi sequence MRI of the lumbar spine was performed without intravenous contrast. FINDINGS: There is pelvocaliectasis noted within the left kidney. No abdominal aortic aneurysm. 10 degrees levoscoliosis measured from L2-L5. Motion degraded exam. Notably, this limits evaluation of the central canal or neural foramina. Moderate Modic type I endplate degeneration at L2-L3. The conus medullaris terminates at L1-L2. Mild nonspecific edema within the paraspinal musculature of the lower lumbar spine. T12-L1: Moderate intervertebral disc space narrowing with spondylitic spurring and moderate facet arthrosis. No significant central canal or left neural foraminal narrowing. There is mild to moderate right foraminal stenosis. L1-L2: Mild intervertebral disc space narrowing with spondylitic spurring, ligamentum flavum thickening with moderate to severe facet arthrosis and trace facet effusions. Mild right neural foraminal narrowing. The central canal and left neural foramen appear patent. L2-L3: Mild intervertebral disc space narrowing with spondylitic spurring, posterior annular disc bulge with disc osteophyte complex. Ligamentum flavum thickening with severe facet arthrosis and small facet effusions. Mild to moderate central canal stenosis with AP dimension of the thecal sac measuring approximately 8 mm. There is suggestion of a left paracentral disc protrusion. Moderate left lateral recess narrowing. [id number] bilateral neural foraminal narrowing. L3-L4: Mild intervertebral disc space narrowing with spondylitic spurring and posterior disc osteophyte complex. Ligamentum flavum thickening with moderate to severe facet arthrosis and trace right facet effusion. Mild central canal stenosis with AP dimension of the thecal sac measuring 9 mm. Mild bilateral neural foraminal narrowing. L4-L5: Spondylitic spurring with circumferential annular disc bulge and posterior disc osteophyte complex. Ligamentum flavum thickening with severe facet arthrosis and moderate facet effusions. Mild central canal stenosis with AP dimension of the thecal sac measuring 9 mm. Mild to moderate right with mo derate left neural foraminal narrowing. L5-S1: Spondylitic spurring with small posterior annular disc bulge. Ligamentum flavum thickening with moderate facet arthrosis. The central canal and right n euroforamen are patent. Mild left neural foraminal stenosis. IMPRESSION: 1. Motion degraded exam which limits evaluation of the central canal and neural foramina. 2. Multilevel central canal and neural foraminal narrowing as detailed above. 3. Moderate Modic type I endplate degeneration at L2-L3. 4. Mild lumbar levoscoliosis. Hospital Course (1) Cellulitis of both lower extremities: - In the setting of chronic lymphedema - Initially on daptomycin/aztreonam. Transitioned to oral Levaquin 05/04/21 (Limited options d/t multiple drug allergies including reported h/o anaphylaxis to PCN) - Has since completed a full course of abx therapy-- 10 days (did have leukocytosis upon presentation that has since resolved and clinically, no evidence of erythema/cellulitis of the legs). - Levaquin will also provide coverage for her UTI (see below) (2) Urinary tract infection: - Urine culture growing pansensitive E. Coli. - Patient says that she was having urinary incontinence (unusual for her) prior to admission. - She says this had been going on since her hospitalization at [place] where she was catheterized - completed full course of abx (Levaquin) - leukocytosis of 15K upon presentation (uncertain is from cellulitis or UTI but at any rate, resolved with treatment) (3) Acute kidney injury: - Creatinine 1.5 upon presentation and clinically appeared to be volume depleted - her home meds were held (including Lasix, Aldactone and metolazone) - does have a h/o CHF but appears volume depleted as above) - gentle IVF given upfront and renal function improved - diuretics were resumed at increased doses and her creatinine lele again (to 2.08) - Neprhology consulted-- appreciate recommendations - Serum sodium still low but this is chronic for her, but also note that this is in the setting of chronic diuretic use including Aldactone which is known to cause electrolyte, specifically Na imbalance - Adjusted diuretics on 05/05, renal function improved as well as Na on 05/06 with these changes but creat continues to uptrend - on 05/10--> cr. normal at 1.03. I cannot argue diastolic dysfunction/CHF but I suspect her main issue is lymphedema likely related to her morbid obesity. Lengthy discussion with patient regarding this. Echocardiogram was done to assess LV function and limited due to poor windows - At this time, will resume diuretic therapy but had a significantly decreased dose. Resume Lasix 40 mg once daily (as opposed to 40 mg twice daily) and Aldactone. Stop metolazone - Would advise follow-up labs next week at discretion of PCP and further down- titration of her diuretic regimen pending these results (4) Lumbar facet arthropathy: - patient with severe back pain and RLE radicular pain along with left hip flexion weakness upon admission. - MRI lumbar spine with numerous findings/abnormalities which would explain her complaints. - In meantime - pain control, increased gabapentin to 300mg BID for neuropathic/radicular pain and added topical voltaren - can consider referral to pain mgmt - VERY poor candidate for any surgical intervention thus defer on ortho consultation. - was seen by PT/OT while in house who was recommending inpatient rehab. Case mgmt was working on this and pt accepted and approval granted by insurance for [facility] [employer]. Despite this, patient is now refusing. She demands to be dis charged to home. She is aware of her risk of fall/injury and readmission (5) Chronic diastolic (congestive) heart failure: - Despite her LE edema she otherwise looked volume contracted at presentation - c/o thirst, creatinine high at 1.5 (baseline 1.1), dry MM, 100% sats in room air. - Echo this admission, however, could not really evaluate the right heart due to poor windows. - Renal function back to baseline - renal function waxed and waned with resumption of diuretics (requiring them to be placed back on hold) and addition of ARB - at this time, renal function back to baseline. Resume diuretics at decreased dose (as outlined above) with additional changes at discretion of PCP based on FU labs (6) COPD (chronic obstructive pulmonary disease): - without acute exacerbation (7) Hypertension: - Started on Losartan 25mg daily on 05/05 but then held with uptrending Creatinine - pt being sent home on her diuretics medications (but at decreased dose). BP currently 151/73 but likely to improve with resumption of lasix (at decreased dosing) and aldactone. PCP to FU on this (8) Hypothyroidism: - Continue levothyroxine 25 mcg daily - TSH is normal. (9) Morbid obesity: - BMI nearly 60 - Not surprised that she has back and leg problems as her stature is likely contributing to this issue - Strongly advise dietary changes and weight loss (10) Gout: - Continue allopurinol 300 mg daily for prophylaxis - She denies foot pain today - Completed a course of tapering Prednisone (11) Lymphedema: - TSH wnl. - No proteinuria. - No h/o liver disease but hasn't had dedicated imaging of liver in several years - at some point would investigate - at risk of CARVER. - Could have right sided CHF contributing to her chronic edema but echo was limited - Dopplers of legs neg for DVT. most of her edema is truly lymphedema in the setting of severe morbid obesity. she does lymphedema wraps at home - resume after d/c.--> consider referral for lymphedema mgmt (at discretion of PCP) Again, patient refused inpatient rehab at this time. D/C to home with home health services Home Health Attestation I certify that this patient is under my care and that I, or a physicians players assistant working with me, had a face to-face encounter that meets the home health [id number] encounter requirements with this patient. The encounter with the patient was in whole, or in part, for the following medi lowell condition, which is the primary reason for home health care (list medical condition): RN, PT I certify that, based on my findings, the following services are medically n ecessary home health services: My clinical findings support the need for the above services because: Home Safety Assessment PT Assessment for Endurance / Balance / Strength PT Eval for Safety and Mobility PT Eval for Safety, Gait Training, Assistive Devices PT Gait and Balance Training, Strengthening and Safety Safety Skilled Nsg Assessment Skilled Nsg Assess Pt Illness, Disease and Sx Monitoring S/S to Report to Provider Further, I certify that my clinical findings support that this patient is homebound (i.e. absences from home require considerable and taxing effort and are for medical reasons or sabianism services or infrequently or of short duration when for other reasons) because: Supportive Aid - Wheelchair Certification for Home Health Services: Based on the above findings, I certify that this patient is confined to the home and needs intermittent jail care, physical therapy and/or speech therapy or continues to need occupational therapy. The patient is under my care, and I have initiated the establishment of the plan of care. This patient will be followed by a physician who will periodically review the plan of care. Total Time Total Time Spent Total Time Spent (In Minutes): 35 including time spent with patient, preparation of documentation, D/W case mgmt and attending provider Discharge Plan Discharge Items Patient Disposition: Home - Home Health Services Reason For Visit: B/L LE CELLULITIS, JAZZY Discharge Diagnosis: 1. Cellulitis of the Bilateral lower extremities- resolved 2. UTI- treated 3. Acute Kidney Injury- resolved Activity: Resume your previous activity Non-emergency contact: Primary Care Provider Call non-emergency contact if: you have any medication questions Follow-up/Referrals: Vickie Hodge DO [Primary Care Provider] - Dietitian Info: recommend weight loss Diet: Heart Healthy Addtl Attending Provider Instructions: -You were hospitalized with concern for cellulitis (infection) of your lower extremities in addition to a urinary tract infection -You have since completed a full course of antibiotic therapy -In addition, you had acute kidney injury that resolved with holding certain medications and gentle IV hydration. It is important to not push the diuretics to treat swelling of your lower extremities as this will potentiate renal dysfunction -Please note that your diuretic regimen has been decreased. Metolazone has been stopped Lasix has been decreased to 40 mg daily continue Aldactone as prior to hospitalization - Unfortunately, the degree of your edema/swelling will not be able to be completely controlled with these medications and increasing their dosage/frequency will only worsen your renal dysfunction -The edema of your lower extremities is likely lymphedema mostly related to morbid obesity--> consider outpatient lymphedema mgmt -Lifestyle recommendations and dietary changes are strongly encouraged -It is encouraged that you have follow-up labs drawn next week to trend your renal function (this is at the discretion of your PCP). -Your gabapentin has been increased to twice a day and you have been started on diclofenac topical to help with back pain -It was recommended that you go to acute rehab and you are accepted at [facility] but you have refused this. -Follow-up with your PCP within 7 to 10 days -Return to the ED for any new or worsening symptoms Pending Studies at Discharge: No Stand-Alone Forms: My [facility], Smoking Cessation Medications and DC Order Prescriptions: New furosemide 40 mg Tablet 40 mg PO DAILY Qty: 30 RF: 0 gabapentin 300 mg Capsule 300 mg PO BID Qty: 60 RF: 0 diclofenac sodium [Voltaren Arthritis Pain] 1 % Gel 2 g EXT QID PRN (Reason: pain) Qty: 100 RF: 0 Continued allopurinol 300 mg tablet 300 mg PO DAILY Qty: 90 RF: 1 levothyroxine 25 mcg tablet 25 mcg PO DAILY Qty: 90 RF: 1 magnesium oxide 400 mg (241.3 mg magnesium) tablet 400 mg PO QAM Qty: 90 RF: 1 spironolactone 50 mg tablet 50 mg PO BID Qty: 180 RF: 1 apple cider vinegar 500 mg tablet 500 mg PO BID Qty: 180 RF: 1 multivitamin [Daily Multi-Vitamin] tablet 1 tab PO QAM RF: 0 latanoprost 0.005 % drops 1 drops OPB HS RF: 0 acetaminophen [Tylenol Extra Strength] 500 mg Tablet 1,000 mg PO BID PRN (Reason: Pain) RF: 0 triamcinolone acetonide 0.1 % cream 1 applic TOPICAL BID RF: 0 aspirin 81 mg Tablet,Chewable 81 mg PO DAILY RF: 0 Discontinued furosemide 40 mg tablet 40 mg PO BID Qty: 180 RF: 1 acetaminophen 650 mg tablet extended release 1,300 mg PO BID RF: 0 metolazone 5 mg tablet 5 mg PO DAILY RF: 0 Discharge Orders: Discharge Order (Routine); Ordered 05/10/21 Ordered By: Anjana Bishop/Other Patient Handouts: Urinary Tract Infections in Women, Understanding Urinary Tract ..., Cellulitis Dc Admission Data Admit Date/Time: 04/30/21 06:00 Attending Provider: Victor M Ingram Admit Provider: Deyvi Naranjo Primary Care Provider: Vickie Hodge Other Providers: [facility] ; [facility] ; Josephine Glodstein ; Victor M Ingram Other Interventions: Discharge Summary Assessment (RN) Last Done: 05/10/21 15:26 Supervising Physician Co-Signing Physician Notes I supervised Anjana Lofton PA-C on the care of this patient. I interviewed and examined the patient independently of her. The plan is as written in her note except for any following changes/exceptions: None Doing well. Finished abx. Advised her that Alfredo could help improve her s trength and could take her today, but she declines. She is capable of making that decision. Coding Level of Care Code D/C DAY MANAGEMENT >30 MINS Diagnoses Cellulitis of both lower extremities L03.115; L03.116 Urinary tract infection N39.0 Acute kidney injury N17.9 Lumbar facet arthropathy M47.816 Chronic diastolic (congestive) heart failure I50.32 COPD (chronic obstructive pulmonary disease) J44.9 Hypertension I10 Hypothyroidism E03.9 Morbid obesity E66.01 Gout M10.9 Lymphedema I89.0
== END 2021-05-10 16:08 | disposition home health service (06) | DRG 603 ==
LOC: ED 00:55 → SUATTDRO 06:00 → EDINP 06:00 → 3N 16:37